=== PATIENT | male | born 1985 | race Caucasian/White ===

== ENCOUNTER 2022-05-18 06:28 | Emergency (ER) | payer SELFPAY ==
--- OUTSIDE RECORDS SUMMARY | 2022-05-18 06:32 | XMS REPORT | Continuity of Care Document ---
:1985 Author Organization [facility] t Address [address] [place] [address] Care Team Providers Name Role Phone Pcp, Patient Does Not Have A Primary Care Physician +[id number] SARINA HOLLIS Attending Clinician Unavailable Sarina Hollis DO Attending Clinician SARINA HOLLIS Admitting Clinician Unavailable Problems Condition Condition Condition Status Onset Resolution Last Treating Co mments Source Name Details Category Date Date Treatment Clinician Date No known No known Disease Unive rs active active ity of problems problems [facility] Allergies, Adverse Reactions, Alerts Allergy Allergy Status Severity Reaction(s) Onset Inactive Treating Comm ents Source Name Type Date Date Clinician Penicill Propensi Active Itching Unive rs in ty to 8-27 ity of adverse 00:00: [place] reaction 00 Medical Branch PENICILL DRUG Active ITCHING Univers IN INGREDI 8-27 ity of 00:00: [place] [facility] Codeine Propensi Active Extra 2006-0 Univers ty to pyramidal 5-18 ity of adverse effects 00:00: [place] reaction 00 Medical s Branch CODEINE DRUG Active EP Effects 0 Unive rs INGREDI -18 ity of 00:00: [place] 00 [facility] Social History Social Habit Start Date Stop Date Quantity Comments Source Exposure to 2022-05-06 2022-05-16 Not sure [facility] SARS-CoV-2 (event) 00:00:00 22:52:00 Medica l Branch Sex Assigned At [birth year] [facility] 00:00:00 00:00:00 Medical Branch Smoking Status Start Date Stop Date Source Tobacco smoking consumption [facility] Medical unknown Branch Medications Ordered Filled Start Stop Current Ordering Indication Dosage Frequency Signature Comments Components Source Medication Medication Date Date Medication? Clinician (SIG) Name Name iopamidol 2021- No [id number] 60mL 60 mL, U nivers (ISOVUE 11-10 Intravenou ity o f 370-500 mL) 17:00: 17:00 s, ONCE, 1 [place] injection 00 :00 dose, On Medica l 60 mL Sat Branch 11/10/21 at 1200, Routine famotidine 2021- No 20mg 20 mg, [facility] ers (PEPCID 11-10 Slow IV ity of (PF)) 16:45: 15:55 Push, [place] injection 00 :00 ONCE, 1 Medical 20 mg dose, On Branch 11/10/21 at 1145, Routine maalox:diph No 15mL 15 mL, Uni vers enhydrAMINE 11-10 Oral, ity of :lidocaine 15:45: 15:55 ONCE, 1 Yah[place] as 2 % viscous 00 :00 dose, On Medi sharon 1:1:1 Sat Branch (FIRST-MOUT 11/10/[address] [facility]) 1045, oral Routine suspension 15 mL CHLORHEXIDI Yes 15 cc po Un krissy NE 5-20 swish and ity of GLUCONATE 00:00: spit bid [place] 0.12 % Medical MUCOUS Branch MEMBR MWSH HYDROCODONE Yes 1-2 tabs Un krissy -ACETAMINOP 5-20 po q4-6h ity of HEN 5-325 00:00: prn pain [place] MG ORAL TAB 00 Medical Branch METRONIDAZO Yes 1 tab po Un krissy LE 250 MG 5-20 q8h ity of ORAL TAB 00:00: [place] 00 Medical Branch CHLORHEXIDI Yes 15 cc po Un krissy NE 5-20 swish and ity of GLUCONATE 00:00: spit bid [place] 0.12 % Medical MUCOUS Branch MEMBR MWSH HYDROCODONE Yes 1-2 tabs Un krissy -ACETAMINOP 5-20 po q4-6h ity of HEN 5-325 00:00: prn [place] MG ORAL TAB 00 Medical Branch METRONIDAZO Yes 1 tab po Un krissy LE 250 MG 5-20 q8h ity of ORAL TAB 00:00: [place] 00 Medical Branch AMOXICILLIN 2005-0 2021- No 1 tab po U nivers 500 MG ORAL 5-20 08-27 q8h ity of CAP 00:00: 00:00 [place] 00 :00 Medical Branch Vital Signs Vital Name Observation Time Observation Value Comments Source Systolic blood 2022-05-17 04:52:00 135 mm[Hg] Univer sity of pressure [facility] Diastolic blood 2022-05-17 04:52:00 92 mm[Hg] Unive rsity of [facility] Heart rate 2022-05-17 04:52:00 98 /min [facility] Body temperature 2022-05-17 04:52:00 36.61 Natasha [facility] Res[facility] rate 2022-05-17 04:52:00 16 /min [facility] Body height 2022-05-17 04:52:00 175.3 cm [facility] Body weight 2022-05-17 04:52:00 81.647 kg [facility] BMI 2022-05-17 04:52:00 26.58 kg/m2 [facility] Oxygen saturation in 2022-05-17 04:52:00 99 /min University of Arterial blood by [facility] Pulse oximetry Branch Systolic blood 2021-11-10 17:41:00 113 mm[Hg] Univer sity of [facility] Diastolic blood 2021-11-10 17:41:00 77 mm[Hg] Unive rsity of [facility] Heart rate 2021-11-10 17:41:00 66 [facility] 2021-11-10 17:41:00 20 /min [facility] Oxygen saturation in 2021-11-10 17:41:00 99 /min University of Arterial blood by [facility] Pulse oximetry Branch Body temperature 2021-11-10 15:38:00 36.83 Natasha [facility] Body height 2021-11-10 15:37:00 175.3 cm [facility] Body weight 2021-11-10 15:37:00 83.915 kg [facility] BMI 2021-11-10 15:37:00 27.32 kg/m2 [facility] Procedures Procedure Date / Time Performed Performing Clinician Sour e CONSENT/REFUSAL FOR 2022-05-17 04:48:42 [facility] ABDOMEN PELVIS W 2021-11-10 16:11:30 [facility] CONTRAST [facility] LIPASE 2021-11-10 15:48:00 Sarina Hollis [facility] COMP. METABOLIC PANEL 2021-11-10 15:48:00 Sarina Hollis [facility] ([id number]) [facility] CBC WITH DIFF 2021-11-10 15:48:00 Sarina Hollis [facility] NOTICE OF PRIVACY 2021-11-10 15:32:49 Doctor Unassigned, No [facility] PRACTICES Name [facility] Encounters Start End Encounter Admission Attending Care Care Encounter Source Date/Time Date/Time Type Type Clinicians Facility Department ID 2022-05-16 2022-05-17 Emergency X JOYCE HOLLIS ERT [id number] Univers 22:54:00 00:03:[address] [facility] 2022-05-16 2022-05-17 Emergency JOYCE Hollis [id number] Univers 22:54:00 00:03:00 Sarina ROSENTHAL [id number] [facility] [id number] [facility] [phone] [place] [address] Branch 2021-11-10 2021-11-10 Emergency X JOYCE HOLLIS ERT [id number] Univers 10:32:00 12:48:00 [facility] 2021-11-10 2021-11-10 Emergency JOYCE Hollis [id number] Univers 10:32:00 12:48:00 Sarina ROSENTHAL [id number] [facility] [id number] [facility] [phone] [facility] 084 Branch Results Test Description Test Time Test Comments Results Result Comments Source COMP. METABOLIC PANEL (48217) 2021-11-10 16:12:12 Test Item Value Reference Range Interpretation Comme nts NA (test code = 6780868195) 137 mmol/L 135-145 K (test code = 4373021577) 5.1 mmol/L 3.5-5 H CL (test code = 0200905458) 105 mmol/L 98-108 CO2 TOTAL (test code = 8328841418) 26 mmol/L 23-31 AGAP (test code = 6962757040) 2-16 BUN (test code = 5064215317) 11 mg/dL 7-23 GLUCOSE (test code = 8058833304) 81 mg/dL 70-110 CREATININE (test code = 0.84 mg/dL 0.6-1.25 1180159985) TOTAL BILI (test code = 0.7 mg/dL 0.1-1.1 3781836901) CALCIUM (test code = 4820081195) 9.1 mg/dL 8.6-10.6 T PROTEIN (test code = 4953926613) 7.2 g/dL 6.3-8.2 ALBUMIN (test code = 5197477369) 4.8 g/dL 3.5-5 ALK PHOS (test code = 1369462457) 93 U/L 34-122 ALTv (test code = 1742-6) 19 U/L 5-50 AST(SGOT) (test code = 4641236065) 30 U/L 13-40 eGFR (test code = 0948967475) mL/min/1.73m2 JACQUELINE (test code = JACQUELINE) Association of Glomerular Filtration Rate (GFR) and Staging of Kidney Disease* + +-------- + ------+| GFR (mL/min/1.73 m2) ?| With Kidney Damage ?| ?Without Kidney Damage+ +-- + +| ?>90 ?| ?Stage one ?| ? Normal ?+ +------- + -------+| ?60-89 ?| ?Stage two ?| ? Decreased GFR ? + +-------- + ------+| ?30-59 ?| ?Stage three ?| ? Stage three ? + +-------- + ------+| ?15-29 ?| ?Stage four ? | ? Stage four ?+ +------- + -------+| ?<15 (or dialysis) ? ?| ?Stage five ? | ? Stage five ?+ +------- + -------+ *Each stage assumes the associated GFR level has been in effect for at least three months. ?Stages 1 to 5, with or without kidney disease, indicate chronic kidney disease. Notes: Determination of stages one and two (with eGFR >59mL/min/1.73 m2) requires estimation of kidney damage for at least three months as defined by structural or functional abnormalities of the kidney, manifested by either:Pathological abnormalities or Markers of kidney damage (including abnormalities in the composition of the blood or urine or abnormalities in imaging tests). Lab Interpretation (test code = Abnormal 61218-6) [facility] Test Item Value Reference Range Interpretation Comments LIPASE (test code = 0487808436) 98 U/L 0-220 Lab Interpretation (test code = Normal 88832-8) General acute hospital WITH HIUA9480-06-06 16:02:37 Test Item Value Reference Range Interpretation Comments WBC (test code = See_Comment [Automated 8008-2) message] The sy stem which generated this result transmitted reference range : 4.20 - 10.70 10*3/?L. The reference range was not used to interpret this result as normal/abnormal . RBC (test code = See_Comment [Automated 164-8) message] The sy stem which generated this result transmitted reference range : 4.26 - 5.52 10*6/?L. The reference range was not used to interpret this result as normal/abnormal . HGB (test code = 16.7 g/dL 12.2-16.4 H 718-7) HCT (test code = 48.6 % 38.4-49.3 4544-3) MCV (test code = 90.2 fL 81.7-95.6 787-2) MCH (test code = 31.0 pg 26.1-32.7 785-6) MCHC (test code = 34.4 g/dL 31.2-35 786-4) RDW-SD (test code = 44.5 fL 38.5-51.6 67844-9) RDW-CV (test code = 13.4 % 12.1-15.4 788-0) PLT (test code = See_Comment [Automated 777-3) message] The sy stem which generated this result transmitted reference range : 150 - 328 10*3/ ?L. The reference r jarod was not used to interpret this result as normal/abnormal . MPV (test code = 10.7 fL 9.8-13 62879-0) NRBC/100 WBC (test See_Comment [Automat ed code = 6381884804) message] The system which generated this result transmitted reference range : 0.0 - 10.0 /100 WBCs. The refer ence range was not u sed to interpret th is result as normal/abnormal . NRBC x10^3 (test code See_Comment [Auto mated = 3689411698) message] The s ystem which generated this result transmitted reference range : 10*3/?L. The reference range was not used to interpret this result as normal/abnormal . GRAN MAT (NEUT) % 53.5 % (test code = 770-8) IMM GRAN % (test code 0.20 % = 4778423995) LYMPH % (test code = 36.7 % 736-9) MONO % (test code = 8.2 % 5905-5) EOS % (test code = 1.0 % 713-8) BASO % (test code = 0.4 % 706-2) GRAN MAT x10^3(ANC) 5.65 10*3/uL 1.99-6.95 (test code = 9899458192) IMM GRAN x10^3 (test 0-0.06 code = 5469603798) LYMPH x10^3 (test code 3.87 10*3/uL 1.09-3.23 H = 731-0) MONO x10^3 (test code 0.86 10*3/uL 0.36-1.02 = 742-7) EOS x10^3 (test code = 0.11 10*3/uL 0.06-0.53 711-2) BASO x10^3 (test code 0.04 10*3/uL 0.01-0.09 = 704-7) Lab Interpretation Abnormal (test code = 68429-2) [facility]"
[2022-05-18] MEDS ORDERED: TETRACAINE HCL 0.5% 4ML OPTH ONE (06:42)
[2022-05-18] MEDS ORDERED: FLUORESCEIN SODIUM 1 MG/WRAP ONE (06:42)
--- NOTE | 2022-05-18 07:38 | ER ---
Nurse's Notes [facility] Name: Baudilio Rich Jr Age: 37 yrs Sex: Male : 1985 Arrival Date: 05/18/2022 Time: 06:31 Bed 5 Private MD: Diagnosis: Foreign body sensation, corneal abrasion Presentation: 05/18 06:40 Chief complaint: Patient states: "I was driving home the other day and something flew vc1 in my eye. I went to the [facility] yesterday and they pulled a piece of metal out but I feel like there is still something there.". Coronavirus screen: Vaccine status: Patient reports receiving the 2nd dose of the covid vaccine. [employer]. Ebola Screen: Patient negative for fever greater than or equal to 101.5 degrees Fahrenheit, and additional compatible Ebola Virus Disease symptoms Patient denies exposure to infectious person. Patient denies travel to an Ebola-affected area in the 21 days before illness onset. No symptoms or risks identified at this time. Risk Assessment: Do you want to hurt yourself or someone else? Patient reports no desire to harm self or others. Onset of symptoms is unknown. 06:40 Method Of Arrival: Ambulatory vc1 06:40 Acuity: IRMA 4 vc1 06:46 Initial Sepsis Screen: Does the patient meet any 2 criteria? No. Patient's initial vc1 sepsis screen is negative. Does the patient have a suspected source of infection? No. Patient's initial sepsis screen is negative. Triage Assessment: 06:45 General: Appears uncomfortable, Behavior is cooperative, appropriate for age. Pain: vc1 Complains of pain in left eye Pain does not radiate. Pain currently is 10 out of 10 on a pain scale. EENT: Eyes are tearing on outer aspect of conjuctiva of left eye and inner aspect of conjunctiva of left eye Reports pain in left eye. Neuro: Level of Consciousness is awake, alert, obeys commands, Oriented to person, place, time, situation, Appropriate for age. Cardiovascular: No deficits noted. Respiratory: Airway is patent Respiratory effort is even, unlabored, Respiratory pattern is regular, symmetrical. GI: No deficits noted. : No deficits noted. No signs and/or symptoms were reported regarding the genitourinary system. Derm: No deficits noted. No signs and/or symptoms reported regarding the dermatologic system. Musculoskeletal: No deficits noted. No signs and/or symptoms reported regarding the musculoskeletal system. Historical: - Allergies: 06:43 Codeine; vc1 06:43 PENICILLINS; vc1 - Home Meds: 06:43 None [Active]; vc1 - PMHx: 06:43 None; vc1 - PSHx: 06:43 None; vc1 - Immunization history:: Client reports receiving the 2nd dose of the Covid vaccine. - Social history:: Smoking status: Patient reports the use of cigarette tobacco products, smokes one pack cigarettes per day. Screenin:44 [facility] ED Fall Risk Assessment (Adult) History of falling in the last 3 months, vc1 including since admission No falls in past 3 months (0 pts) Confusion or Disorientation No (0 pts) Intoxicated or Sedated No (0 pts) Impaired Gait No (0 pts) Mobility Assist Device Used No (0 pt) Altered Elimination No (0 pt) Score/Fall Risk Level 0 - 2 = Low Risk Oriented to surroundings, Maintained a safe environment, Educated pt \\T\\ family on fall prevention, incl call for assistance when getting out of bed. Abuse screen: Denies threats or abuse. Nutritional screening: No deficits noted. Tuberculosis screening: No symptoms or risk factors identified. Assessment: 06:50 General: see triage assessment . as6 06:53 General: Appears in no apparent distress. uncomfortable, Behavior is calm, cooperative. lg3 Pain: Complains of pain in left eye. Neuro: No deficits noted. Doe Agitation-Sedation Scale (RASS): 0 - Alert and Calm Level of Consciousness is awake, alert, obeys commands, Oriented to person, place, time, situation. Cardiovascular: No deficits noted. Denies chest pain, shortness of breath, Capillary refill < 3 seconds Clubbing of nail beds is absent JVD is absent Patient's skin is warm and dry. Respiratory: No deficits noted. Airway is patent Respiratory effort is even, unlabored, Respiratory pattern is regular, symmetrical. GI: No deficits noted. No signs and/or symptoms were reported involving the gastrointestinal system. : No deficits noted. No signs and/or symptoms were reported regarding the genitourinary system. EENT: Eyes are tearing on left eye. Derm: No deficits noted. Skin is intact, is healthy with good turgor, Skin is dry, Skin is normal, Skin temperature is warm. Musculoskeletal: Swelling present in left upper eyelid. 07:26 Reassessment: Dr. Jarvis at bedside. Vital Signs: 06:40 Weight 81.65 kg; Height 5 ft. 9 in. (175.26 cm); vc1 06:41 BP 118 / 82; Pulse 83; Resp 18 S; Temp 98.2(O); Pulse Ox 99% on R/A; as6 06:40 Body Mass Index 26.58 (81.65 kg, 175.26 cm) vc1 ED Course: 06:31 Patient arrived in ED. jj6 06:41 Dmitri Russell, RN is Primary Nurse. as6 06:43 Triage completed. vc1 06:44 Arm band placed on right wrist. vc1 06:46 Patient has correct armband on for positive identification. Bed in low position. vc1 06:53 Door closed. Noise minimized. Warm blanket given. Family accompanied patient. lg3 07:04 Paco Jarvis MD is Attending Physician. sp3 07:41 Assist provider with eye exam of left eye. Performed by Paco Jarvis MD Patient ss tolerated well. Patient did not have IV access during this emergency room visit. Administered Medications: No medications were administered Medication: 06:47 VIS not applicable for this client. vc1 Outcome: 07:38 Discharge ordered by . sp3 07:42 Discharged to home ambulatory. ss 07:42 Condition: good 07:42 Discharge instructions given to patient, family, Instructed on discharge instructions, follow up and referral plans. medication usage, Demonstrated understanding of instructions, follow-up care, medications, Prescriptions given X 1. 07:43 Patient left the ED. Signatures: Huong Cottrell, LLOYD DESAI Cathleen Padilla, LLOYD DESAI lg3 Paco Jarvis MD MD sp3 Imelda Henley jj6 Dmitri Russell RN RN as6 Zari Booth RN RN vc1 Corrections: (The following items were deleted from the chart) 06:42 06:41 BP 118 / 82; Pulse 83bpm; Resp 18bpm; Spontaneous; Pulse Ox 99% RA; Temp 98.4F as6 Oral; as6
--- NOTE | 2022-05-18 07:39 | EDPHYS ---
Physician Documentation [facility] Name: Baudilio Rich Jr Age: 37 yrs Sex: Male : 1985 Arrival Date: 05/18/2022 Time: 06:31 Bed 5 Private MD: ED Physician Paco Jarvis HPI: 05/18 07:31 This 37 yrs old Male presents to ER via Ambulatory with complaints of Foreign Body In sp3 Eye. 07:31 37-year-old male with medical history presents to the ED with chief complaint foreign sp3 body sensation to the left eye. Patient states that he had a "piece of metal" hit his eye 2 days ago for which she was seen in a different emergency department where he had a slit-lamp exam and eye irrigation performed and follow-up with ophthalmology yesterday who also did a full exam and removal of small piece of metal along with corneal bur drill application. That he continued to have foreign body sensation in the different part of his eye under his eyelid starting yesterday evening. That "they did not look under my eyelid". He has a repeat appointment with same supervisor inspection room at 10:30 AM today. He presents to the ED today for pain control and additional consultation. Denies loss of vision, headache, neck pain, fever, double vision, any other neurological symptoms or other aspects of ROS at this time. He is not on any antibiotics or topicals from any of his visits.. Historical: - Allergies: 06:43 Codeine; vc1 06:43 PENICILLINS; vc1 - Home Meds: 06:43 None [Active]; vc1 - PMHx: 06:43 None; vc1 - PSHx: 06:43 None; vc1 - Immunization history:: Client reports receiving the 2nd dose of the Covid vaccine. - Social history:: Smoking status: Patient reports the use of cigarette tobacco products, smokes one pack cigarettes per day. ROS: 07:33 Constitutional: Negative for fever, chills, and weight loss, ENT: Negative for injury, sp3 pain, and discharge, Neck: Negative for injury, pain, and swelling, Cardiovascular: Negative for chest pain, palpitations, and edema, Respiratory: Negative for shortness of breath, cough, wheezing, and pleuritic chest pain. 07:33 Abdomen/GI: Negative for abdominal pain, nausea, vomiting, diarrhea, and constipation, MS/Extremity: Negative for injury and deformity, Skin: Negative for injury, rash, and discoloration, Neuro: Negative for headache, weakness, numbness, tingling, and seizure, Psych: Negative for depression, anxiety, suicide ideation, homicidal ideation, and hallucinations, Allergy/Immunology: Negative for hives, rash, and allergies. 07:33 All other systems are negative. Exam: 07:33 Constitutional: This is a well developed, well nourished patient who is awake, alert, sp3 and in no acute distress. Head/Face: Normocephalic, atraumatic. ENT: Nares patent. No nasal discharge, no septal abnormalities noted. External auditory canals are clear. Oropharynx with no redness, swelling, or masses, exudates, or evidence of obstruction, uvula midline. Mucous membranes moist. Neck: Trachea midline, no thyromegaly or masses palpated, and no cervical lymphadenopathy. Supple, full range of motion without nuchal rigidity, or vertebral point tenderness. No Meningismus. Chest/axilla: Normal chest wall appearance and motion. Nontender with no deformity. No lesions are appreciated. Cardiovascular: Regular rate and rhythm with a normal S1 and S2. No gallops, murmurs, or rubs. Normal PMI, no JVD. No pulse deficits. 07:33 Eyes: Visual acuity is intact. Left eye is injected anterior chamber is clear without hyphema or cloudiness. Pupils equal round reactive to light. Patient declined eye irrigation and only wanted me to look under his eyelid. Eyelid was flipped using Q-tip and Q-tip was also used to sweep area without any visualized foreign body. Pain topical was placed twice during procedure.. Vital Signs: 06:40 Weight 81.65 kg; Height 5 ft. 9 in. (175.26 cm); vc1 06:41 BP 118 / 82; Pulse 83; Resp 18 S; Temp 98.2(O); Pulse Ox 99% on R/A; as6 06:40 Body Mass Index 26.58 (81.65 kg, 175.26 cm) vc1 MDM: 07:30 Patient medically screened. sp3 07:35 Data reviewed: vital signs, nurses notes. ED course: 37-year-old male with foreign body sp3 sensation. At this time I am unable to detect or obtain any foreign body from patient's left eye. Patient declined further examination or irrigation at this time. He has an appointment at 10:30 AM in 3 hours with his supervisor inspection room colleen rivers that we will be better suited for any further intervention. I will start patient on an antibiotic topically given the amount exams and corneal abrasions patient likely has.. Administered Medications: No medications were administered Disposition Summary: 05/18/22 07:38 Discharge Ordered Location: Home sp3 Condition: Stable sp3 Diagnosis - Foreign body sensation, corneal abrasion sp3 Followup: sp3 - With: Private Physician - When: Upon discharge from the Emergency Department - Reason: Re-evaluation by your physician Discharge Instructions: - Discharge Summary Sheet sp3 - Eye Foreign Body sp3 Forms: - Medication Reconciliation Form sp3 - Thank You Letter sp3 - Antibiotic Education sp3 - Prescription Opioid Use sp3 Prescriptions: - Vigamox 0.5 % Ophthalmic Drops - instill 1 drop by OPHTHALMIC route every 8 hours for 7 days; 5 milliliter; sp3 Refills: 0, Product Selection Permitted Signatures: Paco Jarvis MD MD sp3 Zari Booth RN RN vc1
[2022-05-18 07:53] VITALS: BP 118/82; TEMP 98.2; O2SAT 99
== END 2022-05-18 07:43 | disposition home or self-care (01) ==
LOC: ER 06:28
DX: S05.02XA Injury of conjunctiva and corneal abrasion without foreign body, left eye, initial encounter (principal); F17.210 Nicotine dependence, cigarettes, uncomplicated; Z88.0 Allergy status to penicillin; Z88.5 Allergy status to narcotic agent
CPT/HCPCS: 99283

== ENCOUNTER 2024-06-07 08:14 | Emergency (ER) | payer SELFPAY ==
[2024-06-07] MEDS ORDERED: MORPHINE 4 MG/ML SYR ONE (09:12)
[2024-06-07] MEDS ORDERED: ONDANSETRON 4 MG/2 ML VIAL ONE (09:12)
[2024-06-07] MEDS ORDERED: NA CHLORIDE 0.9% 1,000 ML ONE (09:13)
[2024-06-07 09:14] LABS: Absolute Eosinophils 0.1 K/uL (0-0.5); Absolute Lymphocytes (CBC) 3.3 K/uL (0.7-4.9); Absolute Monocytes 0.8 K/uL (0.1-1.3); Absolute Neutrophil 5.5 K/uL (1.8-8.0); Basophils % 0.4 % (0-1.3); Eosinophils % 1.3 % (0-4.4); Hematocrit 49.2 % (39.6-49.0); Hemoglobin 17.1 g/dL (13.6-17.9); Lymphocytes % 33.7 % (15.3-44.8); MCH 31.6 pg (27.0-35.0); MCHC 34.8 g/dL (32.0-36.0); MCV 90.9 fL (80-100); Monocytes % 8.1 % (3.3-12.3); Neutrophils % 56.5 % (41.7-73.7); Nucleated Red Blood Cells % 0.1 % (0-0); Platelets 167 thou/uL (152-406); RBC Red Blood Cell Count 5.41 M/uL (4.33-5.43); Red Cell Distribution Width 14.1 % (12.1-15.2)
--- NOTE | 2024-06-07 09:14 | RAD REPORT ---
EXAMINATION: [place] Protocol CLINICAL INDICATION: Abdominal pain TECHNIQUE: CT abdomen and pelvis was performed, without IV contrast, as per department protocol. Oral contrast not given. Axial, sagittal and coronal reconstructions were obtained. One or more of the following dose reduction techniques were used: Automated exposure control, adjustment of the mA and k V according to the patient size, and iterative reconstruction. Unless otherwise specified, incidental findings do not require dedicated imaging follow-up. COMPARISON: 2022 FINDINGS: The lack of intravenous and oral contrast limits the sensitivity of this exam for evaluation of solid visceral organs, vascular structures, and bowel Multiple, bilateral renal calculi. Mild left hydronephrosis. 5 mm calculus left UPJ. Liver, spleen, pancreas and adrenals grossly normal No evidence of diverticulitis. Normal appendix. Small left inguinal hernia IMPRESSION: 5 mm calculus left UPJ results in mild left hydronephrosis
--- NOTE | 2024-06-07 09:24 | EDPHYS ---
Physician Documentation [facility] Name: Baudilio Rich Jr Age: 39 yrs Sex: Male : 1985 Arrival Date: 06/07/2024 Time: 08:14 Bed 18 Private MD: ED Physician Mingo Lance HPI: 06/07 08:53 This 39 yrs old Male presents to ER via Unassigned with complaints of dr5 Possible Kidney Stone. 08:53 Onset: The symptoms/episode began/occurred acutely. Patient is a 39 year old male with dr5 no past medical history coming in with left flank pain that started last night. Patient states that he has a hx of kidney stones and this feels like another one. The pain is intermittent. Patient also endorses nausea.. Historical: - Allergies: 09:08 PENICILLINS; kc6 09:08 Codeine; kc6 09:08 Amoxicillin; kc6 - PMHx: 09:08 Kidney stone; kc6 - PSHx: 09:08 None; kc6 - Immunization history:: Adult Immunizations up to date. - Infectious Disease History:: Denies. - Social history:: Smoking status: Patient reports the use of cigarette tobacco products, smokes one pack cigarettes per day. ROS: 08:53 Constitutional: as per hpi dr5 Exam: 08:53 Constitutional: This is a well developed, well nourished patient who is awake, alert, dr5 and in no acute distress. Head/Face: Normocephalic, atraumatic. Eyes: Pupils equal round and reactive to light, extra-ocular motions intact. Lids and lashes normal. Conjunctiva and sclera are non-icteric and not injected. Cornea within normal limits. Periorbital areas with no swelling, redness, or edema. Neck: Trachea midline, no thyromegaly or masses palpated, and no cervical lymphadenopathy. Supple, full range of motion without nuchal rigidity, or vertebral point tenderness. No Meningismus. Chest/axilla: Normal chest wall appearance and motion. Nontender with no deformity. No lesions are appreciated. Cardiovascular: Regular rate and rhythm with a normal S1 and S2. Normal PMI, no JVD. No pulse deficits. Respiratory: Lungs have equal breath sounds bilaterally, clear to auscultation. No rales, rhonchi or wheezes noted. No increased work of breathing, no retractions or nasal flaring. Back: No spinal tenderness. No costovertebral tenderness. Full range of motion. Skin: Warm, dry with normal turgor. Normal color with no rashes, no lesions, and no evidence of cellulitis. Neuro: Awake and alert, GCS 15, oriented to person, place, time, and situation. Cranial nerves II-XII grossly intact. Motor strength 5/5 in all extremities. Sensory grossly intact. Cerebellar exam normal. Normal gait. Vital Signs: 08:31 BP 135 / 99; Pulse 85; Resp 18 S; Temp 98.2(O); Pulse Ox 100% on R/A; Weight 88.45 kg kc6 (R); Height 5 ft. 10 in. (R); 08:31 Body Mass Index 27.98 (88.45 kg, 177.8 cm) kc6 MDM: 08:36 Medical Screening Exam initiated dr5 10:06 Differential diagnosis: viral Infection, UTI, Nephrolithiasis, Hydronephrosis. Data dr5 reviewed: vital signs, nurses notes, lab test result(s), radiologic studies, CT scan. I considered the following discharge prescriptions or medication management in the emergency department Medications were administered in the Emergency Department. See MAR. Historians other than the Patient: Spouse/Significant Other: . Care significantly affected by the following chronic conditions: Nephrolithiasis. Care significantly affected by the following Social Determinants of Health: Poor access to healthcare and/or lack of insurance, Poor access to transportation, Problems related to employment. Counseling: I had a detailed discussion with the patient and/or guardian regarding the historical points, exam findings, and any diagnostic results supporting the discharge/admit diagnosis, the presence of at least one elevated blood pressure reading (>120/80) during this emergency department visit, lab results, radiology results, the need for outpatient follow up, for definitive care, a family practitioner, a urologist, to return to the emergency department if symptoms worsen or persist or if there are any questions or concerns that arise at home. ED course: Patient found to have a 5 mm kidney stone. Patient is not in pain at this time. Offered patient pain medication in ER and patient refused due to feeling fine. Patient prescribed pain medication, NSAIDs, as well as Flomax to help with passing of stone. Strainer given to patient and I encouraged him to to void through a strainer to catch stone to take to urologist for examination. Patient verbalized understanding and strict ER precautions given. Patient states he does not need any pain medication as he has passed previous stones and is able to endure it. All questions answered. Patient stable on discharge.. 06/07 08:36 Order name: CBC with Diff; Complete Time: 09:22 [facility] 06/07 08:36 Order name: CMP; Complete Time: : [facility] 06/07 08:36 Order name: Lipase; Complete Time: : [facility] 06/07 08:36 Order name: Urinalysis w/ reflexes; Complete Time: 09: [facility] 06/07 08:36 Order name: CT Stone Protocol; Complete Time: : [facility] 06/07 08:36 Order name: IV Saline Lock; Complete Time: 09: [facility] 06/07 08:36 Order name: Labs collected and sent; Complete Time: 09:04 dr5 Administered Medications: 09:16 Not Given (Patient Refused): ondansetron 4 mg IVP once; over 2 minutes kc6 09:16 Not Given (Patient Refused): morphineor iv 4 mg IVP once over 4 mins kc6 09:16 Drug: NS 0.9% IV 1000 ml IV at 1 bolus Per protocol; to be given as a bolus over 60 kc6 minutes Route: IV; Rate: 1 bolus; Site: right antecubital; 10:02 Follow up: Response: No adverse reaction; IV Status: Completed infusion; IV Intake: kc6 1000ml Disposition Summary: 06/07/24 09:33 Discharge Ordered Notes: Location: Home(06/07/24 09:33) dr5 Condition: Stable(06/07/24 09:33) dr5 Diagnosis - Calculus of kidney dr5 Followup: dr5 - With: Emergency Department - When: As needed - Reason: Worsening of condition Followup: dr5 - With: Private Physician - When: 1 - 2 days - Reason: Recheck today's complaints, Continuance of care, Re-evaluation by your physician Discharge Instructions: - Discharge Summary Sheet dr5 - Kidney Stones dr5 Forms: - Work release form dr5 - Medication Reconciliation Form dr5 - Antibiotic Education dr5 - Patient Portal Instructions dr5 - Leadership Thank You Letter dr5 Addendum: 06/08/2024 11:23 I was immediately available for consultation during this patient's visit. I did not e c2 personally see the patient or discuss the patient with the RUFINA. . Signatures: Dispatcher [employer] Berta Lewis RN RN kc6 Mingo Lance MD MD ec2 Blaine Corrales, LARS-C QUALITY IMPROVEMENT COORDINATOR-Cdr5 Corrections: (The following items were deleted from the chart) 06/07 08: 09:23 [address] dr5 dr5 09: Stable dr5 dr5 09:23 Kidney Stone/ Calculus in bladder dr5 dr5
--- NOTE | 2024-06-07 09:24 | ER ---
Nurse's Notes [facility] Name: Baudilio Rich Jr Age: 39 yrs Sex: Male : 1985 Arrival Date: 06/07/2024 Time: 08:14 Bed 18 Private MD: Diagnosis: Calculus of kidney Presentation: 06/07 08:31 Chief complaint: Patient states: MARCEL flank pain and nausea. [facility] 08:31 Coronavirus screen: At this time, the client does not indicate any symptoms associated [facility] with coronavirus-19. Ebola Screen: No symptoms or risks identified at this time. Initial Sepsis Screen: Does the patient meet any 2 criteria? No. Patient's initial sepsis screen is negative. Does the patient have a suspected source of infection? No. Patient's initial sepsis screen is negative. Risk Assessment: Do you want to hurt yourself or someone else? Patient reports no desire to harm self or others. Onset of symptoms was June 07, 2024. 08:31 Method Of Arrival: Ambulatory [facility] 08:31 Acuity: IRMA 3 kc6 Historical: - Allergies: 09:08 PENICILLINS; kc6 09:08 Codeine; kc6 09:08 Amoxicillin; kc6 - PMHx: 09:08 Kidney stone; kc6 - PSHx: 09:08 None; kc6 - Immunization history:: Adult Immunizations up to date. - Infectious Disease History:: Denies. - Social history:: Smoking status: Patient reports the use of cigarette tobacco products, smokes one pack cigarettes per day. Screenin:02 [facility] ED Fall Risk Assessment (Adult) History of falling in the last 3 months, kc6 including since admission No falls in past 3 months (0 pts) Confusion or Disorientation No (0 pts) Intoxicated or Sedated No (0 pts) Impaired Gait No (0 pts) Mobility Assist Device Used No (0 pt) Altered Elimination No (0 pt) Score/Fall Risk Level 0 - 2 = Low Risk Oriented to surroundings, Maintained a safe environment, Educated pt \T\ family on fall prevention, incl call for assistance when getting out of bed. Abuse screen: Denies threats or abuse. Denies injuries from another. Nutritional screening: No deficits noted. Tuberculosis screening: No symptoms or risk factors identified. Assessment: 10:03 General: Appears in no apparent distress. comfortable, well groomed, well developed, kc6 Behavior is calm, cooperative, appropriate for age. Pain: Complains of pain in left low back and right low back. Neuro: Level of Consciousness is awake, alert, obeys commands, Oriented to person, place, time, situation, Appropriate for age. GI: Abdomen is flat, non-distended, Bowel sounds present X 4 quads. Abd is soft and non tender X 4 quads. Reports nausea, Patient currently denies abdominal pain, diarrhea, vomiting. : No signs and/or symptoms were reported regarding the genitourinary system. Urine is cloudy. Vital Signs: 08:31 BP 135 / 99; Pulse 85; Resp 18 S; Temp 98.2(O); Pulse Ox 100% on R/A; Weight 88.45 kg kc6 (R); Height 5 ft. 10 in. (R); 08:31 Body Mass Index 27.98 (88.45 kg, 177.8 cm) kc6 ED Course: 08:23 Patient arrived in ED. mr 08:23 Mingo Lance MD is Attending Physician. ec2 08:36 Blaine Corrales FNP-C is PHCP. dr5 08:41 Berta Jimenez, LLOYD is Primary Nurse. kc6 08:48 CT Stone Protocol In Process Unspecified. EDMS 09:04 Initial lab(s) drawn, by me, sent to lab. Urine collected: clean catch specimen, clear, zm neetu colored. Inserted saline lock: 20 gauge in right antecubital area, using aseptic technique. Blood collected. Flushed with 10 mL NS. 09:04 CBC with Diff Sent. zm 09:04 CMP Sent. zm 09:04 Lipase Sent. zm 09:04 Urinalysis w/ reflexes Sent. zm 09:08 Triage completed. kc6 09:08 Arm band placed on. kc6 10:03 No provider procedures requiring assistance completed. IV discontinued, intact, kc6 bleeding controlled, No redness/swelling at site. Pressure dressing applied. Patient maintains SpO2 saturation greater than 95% on room air. 10:03 Patient has correct armband on for positive identification. Bed in low position. Call [facility] light in reach. Side rails up X 1. Adult w/ patient. Pulse ox on. NIBP on. Door closed. Noise minimized. Lights dimmed. Pillow given. Verbal reassurance given. Administered Medications: 09:16 Not Given (Patient Refused): ondansetron 4 mg IVP once; over 2 minutes kc6 09:16 Not Given (Patient Refused): morphineor iv 4 mg IVP once over 4 mins kc6 09:16 Drug: NS 0.9% IV 1000 ml IV at 1 bolus Per protocol; to be given as a bolus over 60 kc6 minutes Route: IV; Rate: 1 bolus; Site: right antecubital; 10:02 Follow up: Response: No adverse reaction; IV Status: Completed infusion; IV Intake: kc6 1000ml Medication: 10:04 VIS not applicable for this client. kc6 Intake: 10:02 IV: 1000ml; Total: 1000ml. kc6 Outcome: 09:23 Discharge ordered by . dr5 09:33 Discharge ordered by MD. dr5 10:04 Discharged to home ambulatory, with significant other, kc6 10:04 Condition: good 10:04 Discharge instructions given to patient, significant other, Instructed on discharge instructions, follow up and referral plans. no drinking with medication, no driving heavy equipment, medication usage, Demonstrated understanding of instructions, follow-up care, medications, Prescriptions given X 3, 10:04 Patient left the ED. kc6 Signatures: Dispatcher [employer] EDLindsey Mckeon, Reg Reg mr Mariam Sherman Kaitlyn, RN RN kc6 Mingo Lance MD MD ec2 Blaine Corrales, CHURCH OFFICIAL-C [employer] OFFICIAL-Cdr5
[2024-06-07 09:29] LABS: Albumin 3.9 g/dL (3.4-5.0); Albumin/Globulin Ratio 1.1 (1.1-1.8); Bilirubin Total 0.4 mg/dL (0.2-1.0); Globulin 3.5 g/dL (2.3-3.5); Protein, Total 7.4 g/dL (6.4-8.2)
[2024-06-07 09:29] LABS: Specific Gravity 1.023 (1.005-1.030); Sqamous Epithelial None Seen /HPF (None Seen); Urine Bacteria None Seen /HPF (<20); Urine Bilirubin NEGATIVE (Negative); Urine Blood 3+ (OVER) (Negative); Urine Clarity Turbid (Clear); Urine Color Yellow (Yellow); Urine Culture Reflex Order NOT NEEDED; Urine Glucose NEGATIVE (Negative); Urine Ketones NEGATIVE (Negative); Urine Microscopic Reflex YN ORDER UMIC; Urine Mucus Slight /HPF (None Seen); Urine Nitrite NEGATIVE (Negative); Urine Protein NEGATIVE (Negative); Urine RBC >50 /HPF (None Seen); Urine Urobilinogen Normal (Normal); Urine WBC <5 /HPF (<5); Urine pH 5.5 (5.0-7.0)
[2024-06-07 10:33] VITALS: BP 135/99; TEMP 98.2; O2SAT 100
== END 2024-06-07 10:04 | disposition home or self-care (01) ==
LOC: ER 08:14
DX: N20.0 Calculus of kidney (principal); Z87.442 Personal history of urinary calculi; F17.210 Nicotine dependence, cigarettes, uncomplicated
CPT/HCPCS: 36415; 74176; 76377; 80053; 81001; 83690; 85025; 96360; 99284; J2405; J7030

== ENCOUNTER 2024-06-08 09:46 | Emergency (ER) | payer SELFPAY ==
[2024-06-08] MEDS ORDERED: FENTANYL CITR 100 MCG/2 ML ONE (10:30)
[2024-06-08] MEDS ORDERED: ONDANSETRON 4 MG/2 ML VIAL ONE (10:30)
[2024-06-08] MEDS ORDERED: NA CHLORIDE 0.9% 1,000 ML ONE (10:31)
[2024-06-08 10:32] LABS: Absolute Basophils 0.1 K/uL (0-0.5); Absolute Eosinophils 0.1 K/uL (0-0.5); Absolute Lymphocytes (CBC) 3.1 K/uL (0.7-4.9); Absolute Monocytes 1.1 K/uL (0.1-1.3); Absolute Neutrophil 14.9 K/uL (1.8-8.0); Basophils % 0.4 % (0-1.3); Eosinophils % 0.4 % (0-4.4); Hematocrit 46.9 % (39.6-49.0); Hemoglobin 16.2 g/dL (13.6-17.9); Lymphocytes % 16.2 % (15.3-44.8); MCH 31.4 pg (27.0-35.0); MCHC 34.5 g/dL (32.0-36.0); MPV 9.2 fL (7.6-11.3); Monocytes % 5.6 % (3.3-12.3); Neutrophils % 77.4 % (41.7-73.7); Platelets 161 thou/uL (152-406); RBC Red Blood Cell Count 5.15 M/uL (4.33-5.43)
[2024-06-08] MEDS ORDERED: KETOROLAC 30 MG/ML INJ ONE (10:54)
[2024-06-08] MEDS ORDERED: METOCLOPRAMIDE 10 MG/2mL INJ ONE (11:56)
--- NOTE | 2024-06-08 12:25 | ER ---
Nurse's Notes [facility] Name: Baudilio Rich Jr Age: 39 yrs Sex: Male : 1985 Arrival Date: 06/08/2024 Time: 09:46 Bed 11 Private MD: Diagnosis: Calculus of ureter Presentation: 06/08 10:02 Coronavirus screen: At this time, the client does not indicate any symptoms associated iw with coronavirus-19. Ebola Screen: No symptoms or risks identified at this time. Initial Sepsis Screen: Does the patient meet any 2 criteria? No. Patient's initial sepsis screen is negative. Does the patient have a suspected source of infection? No. Patient's initial sepsis screen is negative. Risk Assessment: Do you want to hurt yourself or someone else? Patient reports no desire to harm self or others. 10:02 Acuity: IRMA 3 iw 10:02 Method Of Arrival: Ambulatory iw Historical: - Allergies: 12:08 Amoxicillin; iw 12:08 Codeine; iw 12:08 PENICILLINS; iw - PMHx: 12:08 Kidney stone; iw Vital Signs: 11:08 BP 112 / 83; Pulse 76; Resp 16; Temp 98.2; Pulse Ox 98% on R/A; Weight 88.45 kg; Height iw 5 ft. 10 in. ; 11:08 Body Mass Index 27.98 (88.45 kg, 177.8 cm) iw ED Course: 09:49 Patient arrived in ED. al6 09:49 Mingo Lance MD is Attending Physician. ec2 10:01 Re Zuluaga, RN is Primary Nurse. iw 10:02 Triage completed. iw 10:13 Missed attempt(s): 20 gauge in right antecubital area. Bleeding controlled, band aid bc6 applied, catheter tip intact. 10:19 BMP Sent. bc6 10:19 CBC with Diff Sent. bc6 10:19 Initial lab(s) drawn, by me, sent to lab. Inserted saline lock: 20 gauge in left bc6 forearm, using aseptic technique. Blood collected. Flushed with 10 mL NS. 12:25 Greyson Cao MD is Referral Physician. ec2 Administered Medications: 10:59 Not Given (Patient Refused): fentanyl (pf)50 mcg IVP once iw 11:00 Drug: NS 0.9% IV 500 ml 500 ml IV at 1 bolus once; to be given as a bolus over 30 iw minutes Volume: 500 ml; Route: IV; Rate: 1 bolus; Site: left antecubital; 11:00 Drug: Ondansetron IVP 4 mg IVP once; over 2 minutes Route: IVP; Site: left antecubital; iw 11:00 Drug: Ketorolac IVP 15 mg IVP once Route: IVP; Site: left antecubital; iw 12:07 Drug: metoCLOPramide IVP 10 mg IVP once; over 1 to 2 minutes Route: IVP; Site: left iw antecubital; Outcome: 12:25 Discharge ordered by MD. santos 12:53 Patient left the ED. iw Signatures: Re Zuluaga RN RN iw Pilar Saxena bc6 Mingo Lance MD MD ec2 Ileana Weems al6
--- NOTE | 2024-06-08 12:25 | EDPHYS ---
Physician Documentation [facility] Name: Baudilio Rich Jr Age: 39 yrs Sex: Male : 1985 Arrival Date: 06/08/2024 Time: 09:46 Bed 11 Private MD: ED Physician Mingo Lance HPI: 06/08 10:04 This 39 yrs old Male presents to ER via Ambulatory with complaints of ec2 Possible Kidney Stone. 10:04 Patient with known diagnosis of kidney stone, arrives today for left-sided flank pain ec2 that is persistent. Was seen yesterday, states that the pain is worsened since. Has been taking ibuprofen with minimal alleviation in symptoms. Reports allergy to codeine.. Historical: - Allergies: 12:08 Amoxicillin; iw 12:08 Codeine; iw 12:08 PENICILLINS; iw - PMHx: 12:08 Kidney stone; iw ROS: 10:05 Constitutional: as per hpi ec2 Exam: 10:05 Constitutional: GEN: NAD Head: atraumatic Eyes: EOMI Ears: External ears are ec2 normal. CV: regular rate LUNGS: no respiratory distress ABD: non-distended, tender in the left abdomen and left flank. SKIN: no evidence of rashes MSK: no evidence of trauma Vital Signs: 11:08 BP 112 / 83; Pulse 76; Resp 16; Temp 98.2; Pulse Ox 98% on R/A; Weight 88.45 kg; Height iw 5 ft. 10 in. ; 11:08 Body Mass Index 27.98 (88.45 kg, 177.8 cm) iw MDM: 09:50 Medical Screening Exam initiated ec2 10:05 Data reviewed: vital signs, nurses notes. ec2 10:45 ED course: Patient declining opiate medications due to previous issues w/ narcotics. ec2 12:24 ED course: on reassessment, pt w/ improvement in s/s. will d/c to home, patient may ec2 benefit from opiate medications however pt declines at this time. 06/08 10:01 Order name: CBC with Diff; Complete Time: 10:54 ec2 06/08 10:01 Order name: BMP; Complete Time: 10:54 ec2 06/08 10:01 Order name: IV; Complete Time: 10:19 ec2 Administered Medications: 10:59 Not Given (Patient Refused): fentanyl (pf)50 mcg IVP once iw 11:00 Drug: NS 0.9% IV 500 ml 500 ml IV at 1 bolus once; to be given as a bolus over 30 iw minutes Volume: 500 ml; Route: IV; Rate: 1 bolus; Site: left antecubital; 11:00 Drug: Ondansetron IVP 4 mg IVP once; over 2 minutes Route: IVP; Site: left antecubital; iw 11:00 Drug: Ketorolac IVP 15 mg IVP once Route: IVP; Site: left antecubital; iw 12:07 Drug: metoCLOPramide IVP 10 mg IVP once; over 1 to 2 minutes Route: IVP; Site: left iw antecubital; Disposition Summary: 06/08/24 12:25 Discharge Ordered Notes: Location: Home ec2 Condition: Stable ec2 Diagnosis - Calculus of ureter ec2 Followup: ec2 - With: Private Physician - When: - Reason: Recheck today's complaints, Re-evaluation by your physician Followup: ec2 - With: Greyson Cao MD - When: - Reason: Recheck today's complaints Discharge Instructions: - Discharge Summary Sheet ec2 - Kidney Stones, [id number] ec2 Forms: - Medication Reconciliation Form ec2 - Antibiotic Education ec2 - Prescription Opioid Use ec2 - Patient Portal Instructions ec2 - Leadership Thank You Letter ec2 Prescriptions: - Zofran 4 mg Oral Tablet - take 1 tablet ORAL route every 12 hours As needed; 20 tablet; Refills: 0, ec2 Product Selection Permitted Signatures: Dispatcher [employer] Re Salinas RN RN Mingo Lance MD MD ec2
[2024-06-08 13:06] VITALS: BP 112/83; TEMP 98.2; O2SAT 98
== END 2024-06-08 12:53 | disposition home or self-care (01) ==
LOC: ER 09:46
DX: N20.1 Calculus of ureter (principal); Z87.442 Personal history of urinary calculi
CPT/HCPCS: 36415; 80048; 85025; 96374; 96375; 99284; J2405; J2765; J3010; J7030

== ENCOUNTER 2024-06-09 07:50 | Emergency (ER) | payer SELFPAY ==
[2024-06-09] MEDS ORDERED: MORPHINE 4 MG/ML SYR ONE (08:08)
[2024-06-09] MEDS ORDERED: KETOROLAC 30 MG/ML INJ ONE (08:08)
[2024-06-09] MEDS ORDERED: NA CHLORIDE 0.9% 1,000 ML ONE ×2 (08:08→10:40)
[2024-06-09] MEDS ORDERED: ONDANSETRON 4 MG/2 ML VIAL ONE (08:08)
--- NOTE | 2024-06-09 08:43 | RAD REPORT ---
EXAMINATION: CT ABDOMEN AND PELVIS WITHOUT CONTRAST CLINICAL INDICATION: PAIN TECHNIQUE: CT abdomen and pelvis was performed, without IV contrast, as per department protocol. Axia l, sagittal and coronal reconstructions were obtained. One or more of the following dose reduction techniques were used: Automated exposure control, adjustment of the mA and kV according to the patien t size, and iterative reconstruction. Unless otherwise specified, incidental findings do not require dedicated imaging follow-up. COMPARISON: 06/07/2024 FINDINGS: The lack of intravenous contrast limits the sensitivity of this exam for evaluation of solid visceral organs, vascular structures, and retroperitoneum. LOWER CHEST: The visualized lung bases are clear. LIVER:Normal in size and contour. No focal lesion. Grossly unremarkable gallbladder. SPLEEN: Normal size. No focal lesion. PANCREAS: No mass, ductal dilation, or wilfrido-pancreatic fluid. ADRENALS: Normal; no mass. KIDNEYS AND URETERS: 5 mm stone is seen distal left ureter resulting in mild left hydronephrosis. Add itional punctate calyceal stones are present in both kidneys. URINARY BLADDER: Normal contour. GASTROINTESTINAL TRACT: No evidence of bowel obstruction, significant free fluid, free air or abscess . APPENDIX: Normal appendix. LYMPH NODES: No lymphadenopathy. MUSCULOSKELETAL: No acute or suspicious osseous abnormality. ADDITIONAL FINDINGS: None. IMPRESSION: 5 mm stone distal left ureter resulting in mild left hydronephrosis. Additional punctate calyceal sto celia are present bilaterally.
[2024-06-09 08:44] LABS: Absolute Basophils 0.1 K/uL (0-0.5); Absolute Lymphocytes (CBC) 1.7 K/uL (0.7-4.9); Absolute Monocytes 1.1 K/uL (0.1-1.3); Absolute Neutrophil 18.6 K/uL (1.8-8.0); Basophils % 0.3 % (0-1.3); Hematocrit 45.4 % (39.6-49.0); Hemoglobin 15.4 g/dL (13.6-17.9); MCV 91.2 fL (80-100); MPV 8.6 fL (7.6-11.3); Monocytes % 5.2 % (3.3-12.3); Neutrophils % 86.5 % (41.7-73.7); Platelets 168 thou/uL (152-406); RBC Red Blood Cell Count 4.98 M/uL (4.33-5.43); Red Cell Distribution Width 13.8 % (12.1-15.2)
[2024-06-09 08:57] LABS: Albumin 3.8 g/dL (3.4-5.0); Albumin/Globulin Ratio 1.2 (1.1-1.8); Anion Gap 9.7 mEq/L (5.0-15.0); Bilirubin Total 0.4 mg/dL (0.2-1.0); Globulin 3.2 g/dL (2.3-3.5); Potassium 3.7 mEq/L (3.5-5.1)
[2024-06-09 09:59] LABS: Blood Morphology Comment NOT SEEN (NOT SEEN); Platelet Estimate ADEQ; White Blood Cell Scan OK (OK)
[2024-06-09 10:13] LABS: Specific Gravity 1.023 (1.005-1.030); Sqamous Epithelial None Seen /HPF (None Seen); Urine Bacteria None Seen /HPF (<20); Urine Bilirubin NEGATIVE (Negative); Urine Blood 3+ (OVER) (Negative); Urine Clarity Turbid (Clear); Urine Color Yellow (Yellow); Urine Culture Reflex Order NOT NEEDED; Urine Glucose NEGATIVE (Negative); Urine Ketones NEGATIVE (Negative); Urine Microscopic Reflex YN ORDER UMIC; Urine Mucus 2+ /HPF (None Seen); Urine Nitrite NEGATIVE (Negative); Urine Protein TRACE (Negative); Urine RBC >50 /HPF (None Seen); Urine Urobilinogen Normal (Normal)
--- NOTE | 2024-06-09 10:20 | EDPHYS ---
Physician Documentation [facility] Name: Baudilio Rich Jr Age: 39 yrs Sex: Male : 1985 Arrival Date: 06/09/2024 Time: 07:50 Bed 17 Private MD: HAVEN Physician Eze Grider HPI: 06/09 08:10 This 39 yrs old Male presents to ER via Ambulatory with complaints of landon Possible Kidney Stone. 08:10 The patient complains of pain in the left low back and left mid back. The pain radiates landon to the left low back and left mid back. Onset: The symptoms/episode began/occurred 3 day(s) ago. Modifying factors: The symptoms are alleviated by nothing. the symptoms are aggravated by nothing. The patient presents with pain that is acute. The symptoms are located in the left low back and left mid back. Associated signs and symptoms: The patient has no apparent associated signs or symptoms. Modifying factors: The patient symptoms are alleviated by nothing, the patient symptoms are aggravated by. Historical: - Allergies: 08:03 Amoxicillin; ll1 08:03 Codeine; ll1 08:03 PENICILLINS; ll1 - PMHx: 08:03 Kidney stone; ll1 - Immunization history:: Adult Immunizations up to date. - Infectious Disease History:: Denies. - Family history:: not pertinent. - Social history:: Smoking status: Patient denies any tobacco usage or history of. ROS: 08:10 Constitutional: Negative for fever, chills, and weight loss, Eyes: Negative for injury, landon pain, redness, and discharge, ENT: Negative for injury, pain, and discharge, Neck: Negative for injury, pain, and swelling, Cardiovascular: Negative for chest pain, palpitations, and edema, Respiratory: Negative for shortness of breath, cough, wheezing, and pleuritic chest pain, Abdomen/GI: Negative for abdominal pain, nausea, vomiting, diarrhea, and constipation, : Negative for injury, bleeding, discharge, and swelling, MS/Extremity: Negative for injury and deformity, Skin: Negative for injury, rash, and discoloration, Neuro: Negative for headache, weakness, numbness, tingling, and seizure, Psych: Negative for depression, anxiety, suicide ideation, homicidal ideation, and hallucinations, Allergy/Immunology: Negative for hives, rash, and allergies, Endocrine: Negative for neck swelling, polydipsia, polyuria, polyphagia, and marked weight changes, Hematologic/Lymphatic: Negative for swollen nodes, abnormal bleeding, and unusual bruising, 08:10 Back: Positive for flank pain, on the left, of the left low back and left mid back, Exam: 08:10 Constitutional: This is a well developed, well nourished patient who is awake, alert, landon and in no acute distress. Head/Face: Normocephalic, atraumatic. Eyes: Pupils equal round and reactive to light, extra-ocular motions intact. Lids and lashes normal. Conjunctiva and sclera are non-icteric and not injected. Cornea within normal limits. Periorbital areas with no swelling, redness, or edema. ENT: Nares patent. No nasal discharge, no septal abnormalities noted. Tympanic membranes are normal and external auditory canals are clear. Oropharynx with no redness, swelling, or masses, exudates, or evidence of obstruction, uvula midline. Mucous membranes moist. Neck: Trachea midline, no thyromegaly or masses palpated, and no cervical lymphadenopathy. Supple, full range of motion without nuchal rigidity, or vertebral point tenderness. No Meningismus. Chest/axilla: Normal chest wall appearance and motion. Nontender with no deformity. No lesions are appreciated. Cardiovascular: Regular rate and rhythm with a normal S1 and S2. No gallops, murmurs, or rubs. Normal PMI, no JVD. No pulse deficits. Respiratory: Lungs have equal breath sounds bilaterally, clear to auscultation and percussion. No rales, rhonchi or wheezes noted. No increased work of breathing, no retractions or nasal flaring. Abdomen/GI: Soft, non-tender, with normal bowel sounds. No distension or tympany. No guarding or rebound. No evidence of tenderness throughout. Male : Normal genitalia with no discharge or lesions. Skin: Warm, dry with normal turgor. Normal color with no rashes, no lesions, and no evidence of cellulitis. MS/ Extremity: Pulses equal, no cyanosis. Neurovascular intact. Full, normal range of motion., bilateral aka Neuro: Awake and alert, GCS 15, oriented to person, place, time, and situation. Cranial nerves II-XII grossly intact. Motor strength 5/5 in all extremities. Sensory grossly intact. Cerebellar exam normal. Normal gait. Psych: Awake, alert, with orientation to person, place and time. Behavior, mood, and affect are within normal limits. 08:10 Back: pain, that is moderate, ROM is normal, normal spinal alignment noted, CVA tenderness, that is mild, is noted on the left, Vital Signs: 08:03 BP 146 / 99; Pulse 60; Resp 24; Temp 97.6; Pulse Ox 99% on R/A; Pain 10/10; ll1 08:40 BP 144 / 84; Pulse 81; Resp 18; Pulse Ox 98% on R/A; Pain 9/10; ld1 10:00 BP 135 / 89; Pulse 87; Resp 18; Pulse Ox 99% on R/A; ld1 10:19 BP 116 / 81; Pulse 75; Resp 18; Pulse Ox 98% on R/A; ld1 08:03 Pain Scale: Adult ll1 08:40 Pain Scale: Adult ld1 MDM: 07:54 Medical Screening Exam initiated landon 08:14 Differential diagnosis: nephrolithiasis, pyelonephritis, UTI. Data reviewed: [facility] signs, nurses notes, lab test result(s), radiologic studies, CT scan. Consideration of Admission/Observation Escalation of care including admission/observation considered. I considered the following discharge prescriptions or medication management in the emergency department Medications were administered in the Emergency Department. See MAR. Independent interpretation of the following test(s) in the Emergency Department CT Scan: My interpretation is CT STONE. Care significantly affected by the following chronic conditions: KIDNEY STONE, UPJ 5 MM. 06/09 07:55 Order name: CBC with Diff; Complete Time: 10:17 [facility] 06/09 07:55 Order name: CMP; Complete Time: 09:32 [facility] 06/09 07:55 Order name: Lipase; Complete Time: 09:32 [facility] 06/09 07:55 Order name: Urinalysis w/ reflexes; Complete Time: 10:17 [facility] 06/09 09:59 Order name: CBC Smear Scan; Complete Time: 10:17 [facility] 06/09 07:55 Order name: CT Stone Protocol; Complete Time: 08:52 [facility] 06/09 07:55 Order name: IV Saline Lock; Complete Time: 08:42 [facility] 06/09 07:55 Order name: Labs collected and sent; Complete Time: 08:42 [facility] 06/09 08:56 Order name: Kavon. Order: GET UA; Complete Time: 10:00 landon 06/09 10:19 Order name: Vital Signs; Complete Time: 10:19 landon Administered Medications: 08:41 Drug: NS 0.9% IV 1000 ml IV at 1000 ml once; to be given as a bolus over 60 minutes ld1 Route: IV; Rate: 1000 ml; Site: right antecubital; 08:41 Drug: Rocephin IV 1 grams IV at per protocol once; Given slow IV push per pharmacy ld1 instructions Route: IV; Rate: per protocol; Site: right antecubital; 08:42 Drug: Ondansetron IVP 4 mg IVP once; over 2 minutes Route: IVP; Site: right antecubital;ld1 08:42 Drug: morphine IVP or IV 4 mg IVP once over 4 mins Route: IVP; Infused Over: 4 mins; ld1 Site: right antecubital; 08:42 Drug: NS 0.9% IV 1000 ml IV at 1 bolus Per protocol; to be given as a bolus over 60 ld1 minutes Route: IV; Rate: 1 bolus; Site: right antecubital; 08:42 Drug: Ketorolac IVP 30 mg IVP once Route: IVP; Site: right antecubital; ld1 10:51 Drug: Ciprofloxacin PO 500 mg PO once Route: PO; ld1 Disposition Summary: 06/09/24 10:20 Discharge Ordered Notes: Location: Home landon Problem: new landon Symptoms: have improved landon Condition: Stable landon Diagnosis - Hydronephrosis with renal and ureteral calculous obstruction landon - Elevated white blood cell count landon Followup: landon - With: Private Physician - When: 2 - 3 days - Reason: Recheck today's complaints, Continuance of care, Re-evaluation by your physician Followup: landon - With: Greyson Cao MD - When: 2 - 3 days - Reason: Recheck today's complaints, Re-evaluation by your physician Discharge Instructions: - Discharge Summary Sheet landon - Kidney Stones landon - Kidney Stones, [id number] landon - Hydronephrosis landon - Dietary Guidelines to Help Prevent Kidney Stones landon Forms: - Medication Reconciliation Form landon - Antibiotic Education landon - Prescription Opioid Use landon - Patient Portal Instructions landon - Leadership Thank You Letter landon Prescriptions: - ondansetron 4 mg Oral Tablet,disintegrating - take 1 tablet ORAL route every 6-8 hours for 5 days PRN NAUSEA; 20 tablet; landon Refills: 0, Product Selection Permitted - Flomax 0.4 mg Oral capsule - take 1 capsule ORAL route every 24 hours; 30 capsule; Refills: 0, Product landon Selection Permitted - ketorolac 10 mg Oral tablet - take 1 tablet ORAL route every 6 hours for 3 days while awake; do not exceed 4 landon doses per day; 12 tablet; Refills: 0, Product Selection Permitted - Cipro 500 mg Oral Tablet - take 1 tablet ORAL route every 12 hours for 7 days; 14 tablet; Refills: 0, [facility] Product Selection Permitted - Tramadol 50 mg Oral tablet - take 1 tablet ORAL route every 6 hours as needed; 20 tablet; Refills: 0, [facility] Product Selection Permitted Signatures: Dispatcher [employer] Eze Vazquez, Adrienne Titus MD, cha, RN RN ll1 Dionne Payan RN RN ld1
--- NOTE | 2024-06-09 10:20 | ER ---
Nurse's Notes [facility] Name: Baudilio Rich Jr Age: 39 yrs Sex: Male : 1985 Arrival Date: 06/09/2024 Time: 07:50 Bed 17 Private MD: Diagnosis: Hydronephrosis with renal and ureteral calculous obstruction;Elevated white blood cell count Presentation: 06/09 08:03 Chief complaint: Patient states: L flank pain with N/V continues, 3rd visit in the past ll1 week. Coronavirus screen: Client denies travel out of the [place] in the last 14 days. At this time, the client does not indicate any symptoms associated with coronavirus-19. Ebola Screen: Patient denies travel to an Ebola-affected area in the 21 days before illness onset. Initial Sepsis Screen: Does the patient meet any 2 criteria? No. Patient's initial sepsis screen is negative. Does the patient have a suspected source of infection? No. Patient's initial sepsis screen is negative. Risk Assessment: Do you want to hurt yourself or someone else? Patient reports no desire to harm self or others. Onset of symptoms was June 01, 2024. 08:03 Method Of Arrival: Ambulatory ll1 08:03 Acuity: IRMA 3 ll1 Triage Assessment: 08:04 General: Appears distressed, uncomfortable, Behavior is calm, cooperative, appropriate ll1 for age. Pain: Complains of pain in L flank. GI: Reports nausea, vomiting. : Reports pain in left flank(s). Historical: - Allergies: 08:03 Amoxicillin; ll1 08:03 Codeine; ll1 08:03 PENICILLINS; ll1 - PMHx: 08:03 Kidney stone; ll1 - Immunization history:: Adult Immunizations up to date. - Infectious Disease History:: Denies. - Family history:: not pertinent. - Social history:: Smoking status: Patient denies any tobacco usage or history of. Screenin:40 [facility] ED Fall Risk Assessment (Adult) History of falling in the last 3 months, ld1 including since admission No falls in past 3 months (0 pts) Confusion or Disorientation No (0 pts) Intoxicated or Sedated No (0 pts) Impaired Gait No (0 pts) Mobility Assist Device Used No (0 pt) Altered Elimination No (0 pt) Score/Fall Risk Level 0 - 2 = Low Risk Oriented to surroundings, Hourly rounding (assess needs \T\ fall precautionary measures) done. Abuse screen: Denies threats or abuse. Denies injuries from another. Nutritional screening: No deficits noted. Tuberculosis screening: No symptoms or risk factors identified. Assessment: 08:40 General: Appears in no apparent distress. comfortable, Behavior is calm, cooperative, ld1 appropriate for age. Pain: Complains of pain in left mid back and left low back Pain does not radiate. Pain currently is 8 out of 10 on a pain scale. Quality of pain is described as throbbing, Pain began suddenly, Is continuous. Neuro: Level of Consciousness is awake, alert, obeys commands, Oriented to person, place, time, situation. Cardiovascular: Capillary refill < 3 seconds Patient's skin is warm and dry. Respiratory: Airway is patent Respiratory effort is even, unlabored. GI: Abdomen is flat, non-distended, Bowel sounds present X 4 quads. Abd is soft Abd is non tender. : Reports pain in left flank(s). EENT: No signs and/or symptoms were reported regarding the EENT system. Derm: No signs and/or symptoms reported regarding the dermatologic system. Musculoskeletal: No signs and/or symptoms reported regarding the musculoskeletal system. Vital Signs: 08:03 BP 146 / 99; Pulse 60; Resp 24; Temp 97.6; Pulse Ox 99% on R/A; Pain 10/10; ll1 08:40 BP 144 / 84; Pulse 81; Resp 18; Pulse Ox 98% on R/A; Pain 9/10; ld1 10:00 BP 135 / 89; Pulse 87; Resp 18; Pulse Ox 99% on R/A; ld1 10:19 BP 116 / 81; Pulse 75; Resp 18; Pulse Ox 98% on R/A; ld1 08:03 Pain Scale: Adult ll1 08:40 Pain Scale: Adult ld1 ED Course: 07:52 Patient arrived in ED. im 07:54 Eze Grider MD is Attending Physician. landon 08:03 Arm band placed on Patient placed in an exam room, on a stretcher. ll1 08:04 Triage completed. ll1 08:19 CT Stone Protocol In Process Unspecified. EDMS 08:36 Dionne Payan, LLOYD is Primary Nurse. ld1 08:36 Inserted saline lock: 20 gauge in right antecubital area, using aseptic technique. ld1 Blood collected. Flushed with 10 mL NS. 08:40 Patient has correct armband on for positive identification. Placed in gown. Bed in low ld1 position. Call light in reach. Side rails up X2. Pulse ox on. NIBP on. Door closed. Noise minimized. Warm blanket given. 08:40 No provider procedures requiring assistance completed. ld1 10:19 Greyson Cao MD is Referral Physician. landon 11:38 IV discontinued, intact, bleeding controlled, No redness/swelling at site. ld1 Administered Medications: 08:41 Drug: NS 0.9% IV 1000 ml IV at 1000 ml once; to be given as a bolus over 60 minutes ld1 Route: IV; Rate: 1000 ml; Site: right antecubital; 08:41 Drug: Rocephin IV 1 grams IV at per protocol once; Given slow IV push per pharmacy ld1 instructions Route: IV; Rate: per protocol; Site: right antecubital; 08:42 Drug: Ondansetron IVP 4 mg IVP once; over 2 minutes Route: IVP; Site: right antecubital;ld1 08:42 Drug: morphine IVP or IV 4 mg IVP once over 4 mins Route: IVP; Infused Over: 4 mins; ld1 Site: right antecubital; 08:42 Drug: NS 0.9% IV 1000 ml IV at 1 bolus Per protocol; to be given as a bolus over 60 ld1 minutes Route: IV; Rate: 1 bolus; Site: right antecubital; 08:42 Drug: Ketorolac IVP 30 mg IVP once Route: IVP; Site: right antecubital; ld1 10:51 Drug: Ciprofloxacin PO 500 mg PO once Route: PO; ld1 Medication: 08:40 VIS not applicable for this client. ld1 Outcome: 10:20 Discharge ordered by . landon 11:38 Discharged to home ambulatory, ld1 11:38 Condition: stable 11:38 Discharge instructions given to patient, Instructed on discharge instructions, follow up and referral plans. Demonstrated understanding of instructions, follow-up care, medications, Prescriptions given X 5 11:38 Patient left the ED. ld1 Signatures: Dispatcher [employer] EDEze Bustos MD MD cha Lewis, Lynsay RN RN ll1 Dionne Payan RN RN ld1 Casie Hammond
[2024-06-09] MEDS ORDERED: CIPROFLOXACIN HCL 500 MG TAB ONE (10:41)
[2024-06-09 11:57] VITALS: TEMP 97.6
[2024-06-09 12:05] VITALS: BP 116/81; O2SAT 98
== END 2024-06-09 11:38 | disposition home or self-care (01) ==
LOC: ER 07:50
DX: N13.2 Hydronephrosis with renal and ureteral calculous obstruction (principal); D72.829 Elevated white blood cell count, unspecified; Z88.0 Allergy status to penicillin; Z88.5 Allergy status to narcotic agent
CPT/HCPCS: 36415; 74176; 76377; 80053; 81001; 83690; 85025; 96374; 96375; 99284; J2405; J7030

== ENCOUNTER 2024-12-28 | Emergency (ER) | payer SELFPAY ==
--- OUTSIDE RECORDS SUMMARY | 2024-12-28 00:10 | XMS REPORT | Continuity of Care Document ---
Author Name Unknown Address [address] [place] [address] [facility] [place] Address [address] [place] [address] Care Team Providers Care Baker Helper Name Role Phone PCP, PATIENT DOES NOT HAVE A Primary Care Physic van SARINA Will Attending Clinician UnavailSARINA Parker Attending Clinician UnavailSARINA Parker Admitting Clinician Unavailab le Problems Condition Name Condition Details Condition Category Status Onset Date Resolution Date Last Treatment Date Treating Clinician Comments Source No known active problems No known active problems Disease [facility] Allergies, Adverse Reactions, Alerts Allergy Name Allergy Type Status Severity Reaction(s) Onset Date Inactive Date Treating Clinician Comments Source Penicill in Propensi ty to adverse reaction s Active Itching 11-10 00:00: 00 [facility] PENICILL IN DRUG INGREDI Active ITCHING 11-10 00:00: 00 [facility] CODEINE DRUG INGREDI Active EP Effects 08-01 00:00: 00 [facility] Codeine Propensi ty to adverse reaction s Active Extra pyramidal effects 08-01 00:00: 00 [facility] Social History Social Habit Start Date Stop Date Quantity Comments Source Sexual orientation [facility] Exposure to SARS-CoV-2 (event) 2022-05-06 00:00:00 2022-05-16 22:52:00 Not sure [facility] Sex assigned at 1985 00:00:00 1985 00:00:00 [facility] Smoking Status Start Date Stop Date Source Tobacco smoking consumption unknown [facility] Medications Ordered Medication Name Filled Medication Name Start Date Stop Date Current Medication? Ordering Clinician Indication Dosage Frequency Signature (SIG) Comments Components Source NaCl 0.9% (NS) bolus infusion 1,000 mL 09-11 21:00: 00 09-11 21:27 :00 No 1000mL at 999 mL/hr, 1,000 mL, IV Infusion, ONCE, 1 dose, On 09/11/24 at 1600, HELADIO [facility] iopamidol (ISOVUE 370-500 mL) injection 60 mL 11-10 17:00: 00 11-10 17:00 :00 No [id number] 60mL 60 mL, Intravenou s, ONCE, 1 dose, On 11/10/21 at 1200, Routine [facility] famotidine (PEPCID (PF)) injection 20 mg 11-10 16:45: 00 11-10 15:55 :00 No 20mg 20 mg, Slow IV Push, ONCE, 1 dose, On 11/10/21 at 1145, Routine [facility] maalox:diph enhydrAMINE :lidocaine 2 % viscous 1:1:1 (FIRST-MOUT HWASH BLM) oral suspension 15 mL 11-10 15:45: 00 11-10 15:55 :00 No 15mL 15 mL, Oral, ONCE, 1 dose, On 11/10/21 at 1045, Routine [facility] CHLORHEXIDI NE GLUCONATE 0.12 % MUCOUS [facility]BR [facility] 08-03 00:00: 00 Yes 15 cc po swish and spit bid [facility] CHLORHEXIDI NE GLUCONATE 0.12 % MUCOUS [facility]BR [facility] 08-03 00:00: 00 Yes 15 cc po swish and spit bid [facility] HYDROCODONE -ACETAMINOP HEN 5-325 MG ORAL TAB 08-03 00:00: 00 Yes 1-2 tabs po q4-6h prn pain [facility] METRONIDAZO LE 250 MG ORAL TAB 08-03 00:00: 00 Yes 1 tab po q8h [facility] AMOXICILLIN 500 MG ORAL CAP 08-03 00:00: 00 11-10 00:00 :00 No 1 tab po q8h [facility] Vital Signs Vital Name Observation Time Observation Value Comments S ource Systolic blood pressure 2024-09-11 21:22:00 128 mm[Hg] [facility] Diastolic blood pressure 2024-09-11 21:22:00 82 mm[Hg] [facility] Heart rate 2024-09-11 21:22:00 78 /min [facility] Body temperature 2024-09-11 21:22:00 36.61 Natasha [facility] Respiratory rate 2024-09-11 21:22:00 18 /min [facility] Oxygen saturation in Arterial blood by Pulse oximetry 2024-09-11 21:22:00 100 /min [facility] Body height 2024-09-11 19:44:00 177.8 cm [facility] Body weight 2024-09-11 19:44:00 86.183 kg [facility] BMI 2024-09-11 19:44:00 27.26 kg/m2 [facility] Systolic blood pressure 2022-05-17 04:52:00 135 mm[Hg] [facility] Diastolic blood pressure 2022-05-17 04:52:00 92 mm[Hg] [facility] Heart rate 2022-05-17 04:52:00 98 /min [facility] Body temperature 2022-05-17 04:52:00 36.61 Natasha [facility] Respiratory rate 2022-05-17 04:52:00 16 /min [facility] Body height 2022-05-17 04:52:00 175.3 cm [facility] Body weight 2022-05-17 04:52:00 81.647 kg [facility] BMI 2022-05-17 04:52:00 26.58 kg/m2 [facility] Oxygen saturation in Arterial blood by Pulse oximetry 2022-05-17 04:52:00 99 /min [facility] Systolic blood pressure 2021-11-10 17:41:00 113 mm[Hg] [facility] Diastolic blood pressure 2021-11-10 17:41:00 77 mm[Hg] [facility] Heart rate 2021-11-10 17:41:00 66 /min [facility] Respiratory rate 2021-11-10 17:41:00 20 /min [facility] Oxygen saturation in Arterial blood by Pulse oximetry 2021-11-10 17:41:00 99 /min [facility] Body temperature 2021-11-10 15:38:00 36.83 Natasha [facility] Body height 2021-11-10 15:37:00 175.3 cm [facility] Body weight 2021-11-10 15:37:00 83.915 kg [facility] BMI 2021-11-10 15:37:00 27.32 kg/m2 [facility] Procedures Procedure Date / Time Performed Performing Clinicia n Source CREATINE KINASE 2024-09-11 20:19:00 Sarina Hollis [facility] MAGNESIUM 2024-09-11 20:19:00 Sarina Hollis [facility] COMP. METABOLIC PANEL (24166) 2024-09-11 20:19:00 Sarina Hollis [facility] CBC WITH DIFF 2024-09-11 20:19:00 Sarina Hollis [facility] POCUS DVT US 2024-09-11 19:52:25 Sarina Hollis [facility] CONSENT/REFUSAL FOR DIAGNOSIS AND TREATMENT 2022-05-17 04:48:42 Doctor Unassigned, [place] [facility] CT ABDOMEN PELVIS W CONTRAST 2021-11-10 16:11:30 Sarina Hollis [facility] LIPASE 2021-11-10 15:48:[address] [facility] MET[facility]OLIC PANEL (03251) 2021-11-10 15:48:00 Sarina Hollis [facility] CBC WITH DIFF 2021-11-10 15:48:[address] [facility] OF PRIVACY PRACTICES 2021-11-10 15:32:49 Doctor Unassigned, [place] [facility] Encounters Start Date/Time End Date/Time Encounter Type Admission Type Attending [facility] Care Department Encounter ID Source 2024-09-11 14:46:00 2024-09-11 16:29:00 Emergency X SARINA HOLLIS [facility] ERT [id number] [facility] 2022-05-16 22:54:00 2022-05-17 00:03:00 Emergency X SARINA HOLLIS [facility] ERT [id number] [facility] 2022-05-16 22:54:00 2022-05-17 00:03:00 Emergency Sarina Hollis [facility] [id number] [facility] 2021-11-10 10:32:00 2021-11-10 12:48:00 Emergency X SARINA HOLLIS [facility] ERT [id number] [facility] 2021-11-10 10:32:00 2021-11-10 12:48:00 Emergency Sarina Hollis [facility] [id number] [facility] Results Test Description Test Time Test Comments Results Result Co mments Source [facility] 20:46:00* Test Item Value Reference Range Interpretation Comme nts MAGNESIUM (test code = 0736746545) 1.8 mg/dL 1.7-2.4 Lab Interpretation (test cod e = 53357-9) Normal [facility] (47496)2024-09-11 20:45:39* Test Item Value Reference Range Interpretation Comme nts NA (test code = 8829461109) 137 mmol/L 135-145 K (test code = 2331980241) 4.5 mmol/L 3.5-5.0 CL (test code = 6647116651) 107 mmol/L 98-108 CO2 TOTAL (test code = 3233826113) 23 mmol/L 23-31 AGAP (test code = 4724493120) 7 2-16 BUN (test code = 9816130693) 14 mg/dL 7-23 GLUCOSE (test code = 4279877960) 79 mg/dL 70-110 CREATININE (test code = 2160-0) 0.92 mg/dL 0.60-1.25 TOTAL BILI (test code = 0836817408) 0.6 mg/dL 0.1-1.1 CALCIUM (test code = 4620175079) 9.3 mg/dL 8.6-10.6 T PROTEIN (test code = 3841079373) 7.1 g/dL 6.3-8.2 ALBUMIN (test code = 3101860702) 4.2 g/dL 3.5-5.0 ALK PHOS (test code = 1817994116) 86 U/L 34-122 ALTv (test code = 1742-6) 21 U/L 5-50 AST(SGOT) (test code = 3457443026) 27 U/L 13-40 eGFR (test code = 03310-4) 108.5 mL/min/1.73m2 CKD-EPI eGFR (20 21). Assuming creatinine has been stable day-to-day for at least three months, the eGFR indicates Category G1 (>= 90 mL/min/1.73 m2) [facility] WITH [id number] 20:34:01* Test Item Value Reference Range Interpretation Comme nts WBC (test code = 6690-2) 10.27 4.20-10.70 RBC (test code = 789-8) 4.91 4.26-5.52 HGB (test code = 718-7) 15.6 g/dL 12.2-16.4 HCT (test code = 4544-3) 44.9 % 38.4-49.3 MCV (test code = 787-2) 91.4 fL 81.7-95.6 MCH (test code = 785-6) 31.8 pg 26.1-32.7 MCHC (test code = 786-4) 34.7 g/dL 31.2-35.0 RDW-SD (test code = 10586-4) 45.7 fL 38.5-51.6 RDW-CV (test code = 788-0) 13.5 % 12.1-15.4 PLT (test code = 777-3) 156 150-328 MPV (test code = 67892-4) 10.5 fL 9.8-13.0 NRBC/100 WBC (test code = 0961073416) 0 0.0-10.0 NRBC x10^3 (test code = 5957794452) See_Comment [Automated messa ge] The system which generated this result transmitted reference range: 10*3/?L. The reference range was not used to interpret this result as normal/abnormal. GRAN MAT (NEUT) % (test code = 770-8) 52.6 % IMM GRAN % (test code = 5794099044) 0.2 % LYMPH % (test code = 736-9) 38.2 % MONO % (test code = 5905-5) 7.8 % EOS % (test code = 713-8) 0.9 % BASO % (test code = 706-2) 0.3 % GRAN MAT x10^3(ANC) (test code = 0383004451) 5.41 10*3/uL 1.99-6.95 IMM GRAN x10^3 (test code = 6730709703) 0.00-0.06 LYMPH x10^3 (test code = 731-0) 3.92 10*3/uL 1.09-3.23 H MONO x10^3 (test code = 742-7) 0.8 10*3/uL 0.36-1.02 EOS x10^3 (test code = 711-2) 0.09 10*3/uL 0.06-0.53 BASO x10^3 (test code = 704-7) 0.03 10*3/uL 0.01-0.09 Lab Interpretation (test code = 74513-3) [facility]normal [facility] [id number] 20:06:25Study Date and Time: 2024-09-11 14:52Study Author: Sarina Hollis DVT - Lower Extremity Venous:Focused compression ultrasonography of the lower extremity was performed.: ? ?Laterality: LeftIndication(s) for exam: ? ?Select all that apply:: LE Pain ? ?Other indications: N/AViews - R LE: ? ?Right Saphenofemoral Junction: N/A ? ?Right Common Femoral Vein: N/A ? ?Right Femoral Vein: N/A ? ?Right Deep Femoral: N/A ? ?Right Popliteal Vein: N/A ? ?Right Popliteal Trifurcation: N/A ? ?Right CFV Spectral Doppler Performed: N/A ? ?Other Right LE views: N/AViews - Left LE: ? ?Left Saphenofemoral Junction: Adequate ? ?Left Common Femoral Vein: Adequate ? ?Left Femoral Vein: Adequate ? ?Left Deep Femora l: N/A ? ?Left Popliteal Vein: Adequate ? ?Left Popliteal Trifurcation: N/A ? ?Left CFV Spectral Doppler Performed: N/A ? ?Other left LE views: N/AFindings - Right LE: ? ?Right Saphenofemoral Junction: N/A ? ?Right Common Femoral Vein: N/A ? ?Right Femoral Vein: N/A ? ?Right Deep Femoral: N/A ? ?Right Popliteal Vein: N/A ? ?Right Popliteal Trifurcation: N/A ? ?Right CFV Spectral Doppler: N/A ? ?Other right LE findings: N/AFindings - Left LE: ? ?Left Saphenofemoral Junction: Compressible ? ?LeftCommon Femoral Vein: Compressible ? ?Left Femoral Vein: Compressible ? ?Left Deep Femoral: N/A ? ?Left Popliteal Vein: Compressible ? ?Left Popliteal Trifurcation: N/A ? ?Left CFV Spectral Doppler: N/A ? ?Other left LE findings: N/AInterpretation: ? ?Select all that apply: No sonographic evidence of deep vein thrombosis ? ?If present, location(s) of DVT: N/A ? ?If negative:: N/AConfirmatory Study: ? ?What confirmatory study was performed during ED patient evaluation?: No additional imaging ordered ? ?Confirmatory Study/Comments: N/A Signed by Sarina Hollis on 2024-09-11 15:06 [facility]. METABOLIC PANEL (42464)2021-11-10 16:12:12* Test Item Value Reference Range Interpretation Comme nts NA (test code = 7407806762) 137 mmol/L 135-145 K (test code = 2943165901) 5.1 mmol/L 3.5-5 H CL (test code = 1325673038) 105 mmol/L 98-108 CO2 TOTAL (test code = 1408389554) 26 mmol/L 23-31 AGAP (test code = 1219848640) 2-16 BUN (test code = 2072053598) 11 mg/dL 7-23 GLUCOSE (test code = 7226497858) 81 mg/dL 70-110 CREATININE (test code = 1197117168) 0.84 mg/dL 0.6-1.25 TOTAL BILI (test code = 7155357151) 0.7 mg/dL 0.1-1.1 CALCIUM (test code = 5654356487) 9.1 mg/dL 8.6-10.6 T PROTEIN (test code = 2135861051) 7.2 g/dL 6.3-8.2 ALBUMIN (test code = 2314037605) 4.8 g/dL 3.5-5 ALK PHOS (test code = 5049368682) 93 U/L 34-122 ALTv (test code = 1742-6) 19 U/L 5-50 AST(SGOT) (test code = 6705334839) 30 U/L 13-40 eGFR (test code = 3129010625) mL/min/1.73m2 JACQUELINE (test code = JACQUELINE) Association of Glomerular Filtration Rate (GFR) and Staging of Kidney Disease* + --+ --+ ------+| GFR (mL/min/1.73 m2) ?| With Kidney Damage ?| ?Without Kidney Damage+ --------+ --------+ +| ?>90 ?| ?Stage one ?| ? Normal ?+ ---+ ---+ -------+| ?60-89 ?| ?Stage two ?| ? Decreased GFR ? + --+ --+ ------+| ?30-59 ?| ?Stage three ?| ? Stage three ? + --+ --+ ------+| ?15-29 ?| ?Stage four ? | ? Stage four ?+ ---+ ---+ -------+| ?<15 (or dialysis) ? ?| ?Stage five ? | ? Stage five ?+ ---+ ---+ -------+ *Each stage assumes the associated GFR [...] imaging tests). Lab Interpretation (test code = 99104-5) [facility]normal [facility] 16:11:17* Test Item Value Reference Range Interpretation Comme nts LIPASE (test code = 0478301629) 98 U/L 0-220 Lab Interpretation (test cod e = 01656-8) Normal [facility] WITH [id number] 16:02:37* Test Item Value Reference Range Interpretation Comme nts WBC (test code = 6690-2) See_Comment [[employer]] The system which generated this result transmitted reference range: 4.20 - 10.70 10*3/?L. The reference range was not used to interpret this result as normal/abnormal. RBC (test code = 789-8) See_Comment [[employer]] The system which generated this result transmitted reference range: 4.26 - 5.52 10*6/?L. The reference range was not used to interpret this result as normal/abnormal. HGB (test code = 718-7) 16.7 g/dL 12.2-16.4 H HCT (test code = 4544-3) 48.6 % 38.4-49.3 MCV (test code = 787-2) 90.2 fL 81.7-95.6 MCH (test code = 785-6) 31.0 pg 26.1-32.7 MCHC (test code = 786-4) 34.4 g/dL 31.2-35 RDW-SD (test code = 57977-2) 44.5 fL 38.5-51.6 RDW-CV (test code = 788-0) 13.4 % 12.1-15.4 PLT (test code = 777-3) See_Comment [Automated messa ge] The system which generated this result transmitted reference range: 150 - 328 10*3/?L. The reference range was not used to interpret this result as normal/abnormal. MPV (test code = 37142-0) 10.7 fL 9.8-13 NRBC/100 WBC (test code = 8758818194) See_Comment [Automated [employer] ssage] The system which generated this result transmitted reference range: 0.0 - 10.0 /100 WBCs. The reference range was not used to interpret this result as normal/abnormal. NRBC x10^3 (test code = 6159518450) See_Comment [Automated messa ge] The system which generated this result transmitted reference range: 10*3/?L. The reference range was not used to interpret this result as normal/abnormal. GRAN MAT (NEUT) % (test code = 770-8) 53.5 % IMM GRAN % (test code = 9138636260) 0.20 % LYMPH % (test code = 736-9) 36.7 % MONO % (test code = 5905-5) 8.2 % EOS % (test code = 713-8) 1.0 % BASO % (test code = 706-2) 0.4 % GRAN MAT x10^3(ANC) (test code = 5208694577) 5.65 10*3/uL 1.99-6.95 IMM GRAN x10^3 (test code = 1507152272) 0-0.06 LYMPH x10^3 (test code = 731-0) 3.87 10*3/uL 1.09-3.23 H MONO x10^3 (test code = 742-7) 0.86 10*3/uL 0.36-1.02 EOS x10^3 (test code = 711-2) 0.11 10*3/uL 0.06-0.53 BASO x10^3 (test code = 704-7) 0.04 10*3/uL 0.01-0.09 Lab Interpretation (test code = 82210-6) Abnormal [facility] Notes Date/Time Note Provider Source 2024-09-11 16:28:43 Discharged home ambulatory. Home instructions instructed. Jf Martinez RN [facility] 2024-09-11 14:41:01 Pp to the ED for c/o left leg pain that started Friday. Pt reports he thinks that he may have compressed calf muscle because when he sits he crosses his leg. Pt report no injury no trauma 5/10 pain. Pt reports he feels that his toes feels cold and just worried about DVT. Shanel Huntley RN [facility] 2024-09-11 14:37:00 [facility] Emergency Department Note Patient Name: Mary Renee Date of : 1985 39 year old male Treatment Room: [place] [address] Primary Care Physician: PATIENT DOES NOT HAVE A PCP Patient Escorted by: Family [5] Mode of Arrival: Personal means [1] EMS Treatment Prior to ED Arrival: Travel and Exposure Screening: Symptoms Does patient have any of these symptoms?: (not recorded) Exposure Screening Has patient had contact with someone with a communicable disease in the last month?: (not recorded) Diseases exposed to:: (not recorded) Is Patient ?: (not recorded) Exposure Date: (not recorded) Chief Complaint: Chief Complaint Patient presents with Pain Left leg History of Present Illness: History of Present Illness The patient presents from home for evaluation for left calf pain since Friday. Today is Friday. He denies any injury or trauma. No fevers or chills. No wounds to his leg. No swelling of the left leg when compared to the right leg. No recent trips or travel more than 2 or 3 hours. No chest pain or pressure. No shortness of breath. He has no history of high blood pressure, diabetes or high cholesterol. Here for evaluation. Past Medical History/Immunizations: History reviewed. No pertinent past medical history. Allergies: Allergies Allergen Reactions Codeine Extra pyramidal effects Penicillin Itching Past Social History: Substance & Sexual Activity No substance use or sexual activity history on file. Past Surgical History: History reviewed. No pertinent surgical history. Review of Systems: Review of Systems Constitutional: Negative for chills and fever. Respiratory: Negative for cough and shortness of breath. Cardiovascular: Negative for chest pain. Gastrointestinal: Negative for abdominal pain. Genitourinary: Negative for dysuria. Musculoskeletal: Positive for myalgias. Negative for arthralgias, neck pain and neck stiffness. Skin: Negative for wound. Neurological: Negative for dizziness. Psychiatric/Behavioral: Negative for agitation. Endocrine: Negative for goiter. Physical Exam: Physical Exam ED Triage Vitals [09/11/24 1444] Weight 86.2 kg (190 lb) Actual or estimated Actual Height 1.778 m (5' 10") BP (!) 131/91 Pulse 80 Resp 16 Temp 36.8 ?C (98.2 ?F) Temp source Oral SpO2 100 % Measured on Room air Physical Exam Vitals and nursing note reviewed. Constitutional: Appearance: Normal appearance. HENT: Head: Normocephalic and atraumatic. Cardiovascular: Rate and Rhythm: Normal rate. Pulses: Normal pulses. Pulmonary: Effort: Pulmonary effort is normal. No respiratory distress. Abdominal: General: There is no distension. Palpations: Abdomen is soft. Musculoskeletal: General: Normal range of motion. Cervical back: Neck supple. Comments: No erythema, warmth or tenderness to his left leg. +2 dorsalis pedis bilaterally. Skin: General: Skin is warm and dry. Neurological: General: No focal deficit present. Mental Status: He is alert and oriented to person, place, and time. Radiology: No orders to display Lab Results: Lab Results CBC WITH DIFF - Abnormal Result Value Ref Range WBC 10.27 4.20 - 10.70 10*3/?L RBC 4.91 4.26 - 5.52 10*6/?L HGB 15.6 12.2 - 16.4 g/dL HCT 44.9 38.4 - 49.3 % MCV 91.4 81.7 - 95.6 fL MCH 31.8 26.1 - 32.7 pg MCHC 34.7 31.2 - 35.0 g/dL RDW-SD 45.7 38.5 - 51.6 fL RDW-CV 13.5 12.1 - 15.4 % PLT 156 150 - 328 10*3/?L MPV 10.5 9.8 - 13.0 fL NRBC/100 WBC 0.0 0.0 - 10.0 /100 WBCs NRBC x10 3 <0.01 10*3/?L GRAN MAT (NEUT) % 52.6 % IMM GRAN % 0.20 % LYMPH % 38.2 % MONO % 7.8 % EOS % 0.9 % BASO % 0.3 % GRAN MAT x10 3 (ANC) 5.41 1.99 - 6.95 10*3/uL IMM GRAN x10 3 <0.03 0.00 - 0.06 10*3/uL LYMPH x10 3 3.92 (*) 1.09 - 3.23 10*3/uL MONO x10 3 0.80 0.36 - 1.02 10*3/uL EOS x10 3 0.09 0.06 - 0.53 10*3/uL BASO x10 3 0.03 0.01 - 0.09 10*3/uL CREATINE KINASE - Normal CK 80 33 - 194 U/L MAGNESIUM - Normal MAGNESIUM 1.8 1.7 - 2.4 mg/dL COMP. METABOLIC PANEL (30900) NA 137 135 - 145 mmol/L K 4.5 3.5 - 5.0 mmol/L CL 107 98 - 108 mmol/L CO2 TOTAL 23 23 - 31 mmol/L AGAP 7 2 - 16 BUN 14 7 - 23 mg/dL GLUCOSE 79 70 - 110 mg/dL CREATININE 0.92 0.60 - 1.25 mg/dL TOTAL BILI 0.6 0.1 - 1.1 mg/dL CALCIUM 9.3 8.6 - 10.6 mg/dL T PROTEIN 7.1 6.3 - 8.2 g/dL ALBUMIN 4.2 3.5 - 5.0 g/dL ALK PHOS 86 34 - 122 U/L ALTv 21 5 - 50 U/L AST(SGOT) 27 13 - 40 U/L eGFR 108.5 mL/min/1.73m2 EKG: If EKG completed, see Procedure Note. Orders and Treatments: Orders Placed This Encounter Procedures POCUS DVT US CBC WITH DIFF COMP. METABOLIC PANEL (75548) Creatine Kinase Magnesium Orders Placed This Encounter Medications NaCl 0.9% (NS) bolus infusion 1,000 mL First Provider Eval: ED Events Date/Time Event User Comments 09/11/24 1440 Medical Screening Begins SARINA HOLLIS DO -- 09/11/24 1440 First Provider Evaluation SARINA HOLLIS DO -- ED COURSE Diagnosis/Impression as of 09/11/24 1618 Pain of left lower extremity Results Procedures: Procedures MDM: Assessment & Plan Medical Decision Making The patient presents from home for evaluation for left calf pain since Friday. Today is Friday. He denies any injury or trauma. No fevers or chills. No wounds to his leg. No swelling of the left leg when compared to the right leg. No recent trips or travel more than 2 or 3 hours. No chest pain or pressure. No shortness of breath. He has no history of high blood pressure, diabetes or high cholesterol. Vital signs are stable in the ER. He has full range of motion of the left hip, knee and ankle. +2 dorsalis pedis bilaterally. His feet are warm to the touch and not blue or wagoner in color. He has no erythema, warmth or tenderness to his left leg. DVT ultrasound performed at bedside was negative. Laboratory studies looking for electrolyte abnormality as well as rhabdomyolysis were also negative. He was given IV fluids for possible dehydration. No concern for cellulitis or fracture based on his presentation. He remained stable here in the ER and is okay for discharge home with PCP follow-up in 1 week. Problems Addressed: Pain of left lower extremity: acute illness or injury Amount and/or Complexity of Data Reviewed Labs: ordered. Decision-making details documented in ED Course. Radiology: independent interpretation performed. Decision-making details documented in ED Course. Risk OTC drugs. Prescription drug management. Flowsheet Documentation: Scoring Tools: No data recorded Disposition/Condition: ED Disposition ED Disposition Discharge Condition Stable Comment -- Discharge Medications: Patient's Medications START taking these medications No medications on file CONTINUE taking these medications which have NOT CHANGED CHLORHEXIDINE GLUCONATE 0.12 % MUCOUS MEMBR MWSH 15 cc po swish and spit bid HYDROCODONE-ACETAMINOPHEN 5-325 MG ORAL TAB 1-2 tabs po q4-6h prn pain METRONIDAZOLE 250 MG ORAL TAB 1 tab po q8h START taking Modified Medications as Prescribed No medications on file STOP taking these medications No medications on file Follow-up: Electronically signed by: Sarina Hollis DO 09/11/24 [address] [facility]
[2024-12-28] MEDS ORDERED: NA CHLORIDE 0.9% 1,000 ML ONE (01:02)
[2024-12-28] MEDS ORDERED: ASPIRIN 81 MG CHEWABLE TABLET ONE (01:02)
[2024-12-28] MEDS ORDERED: KETOROLAC 30 MG/ML INJ ONE (01:02)
[2024-12-28 01:14] LABS: Absolute Lymphocytes (CBC) 3.5 K/uL (0.7-4.9); Hematocrit 42.6 % (39.6-49.0); Hemoglobin 14.6 g/dL (13.6-17.9); MCH 30.6 pg (27.0-35.0); MCHC 34.3 g/dL (32.0-36.0); MCV 89.2 fL (80-100); MPV 8.6 fL (7.6-11.3); Nucleated RBC Absolute Count 0.0 (0-0); Nucleated Red Blood Cells % 0.0 % (0-0); RBC Red Blood Cell Count 4.77 M/uL (4.33-5.43); White Blood Count 9.60 thou/uL (4.3-10.9)
[2024-12-28 01:27] LABS: Sqamous Epithelial None Seen /HPF (None Seen); Urine Culture Reflex Order NOT NEEDED; Urine Microscopic Reflex YN ORDER UMIC
[2024-12-28 01:33] LABS: ALT/SGPT 50 U/L (16-61); AST/SGOT 17 U/L (15-37); Albumin 3.7 g/dL (3.4-5.0); Albumin/Globulin Ratio 1.2 (1.1-1.8); Alkaline Phosphatase 95 U/L (45-117); Anion Gap 10.7 mEq/L (5.0-15.0); BUN Blood Urea Nitrogen 14 mg/dL (7-18); Globulin 3.2 g/dL (2.3-3.5); Glucose Level 105 mg/dL (74-106); HDL Cholesterol 43 mg/dL (40-60); LDL Cholesterol, Calculated 71 mg/dL (<130); LDL Cholesterol,Calc NonReport 71; Magnesium 2.0 mg/dL (1.6-2.4); NT PRO-BNP 39 pg/mL (<125); Potassium 3.7 mEq/L (3.5-5.1); Troponin High Sensitivity 3.8 pg/mL (<58.9)
[2024-12-28 01:34] LABS: Bilirubin Indirect, Calculated 0.0 mg/dL (0.2-0.8)
[2024-12-28 02:09] LABS: D-Dimer 0.35 FEUug/mL (0-0.500); PT Prothrombin Time 10.6 SECONDS (10-13.0); Protime INR 0.94
--- NOTE | 2024-12-28 03:28 | ER ---
Nurse's Notes [facility] Name: Baudilio Rich Jr Age: 39 yrs Sex: Male : 1985 Arrival Date: 12/28/2024 Time: 00:00 Bed 18 Private MD: Diagnosis: Unspecified symptoms and signs involving the musculoskeletal system;Cramp and spasm;Essential (primary) hypertension Presentation: 12/28 00:06 Chief complaint: Patient states: trying to sleep and both of my legs hurt really bad. vc1 Coronavirus screen: Client denies travel out of the [place] in the last 14 days. At this time, the client does not indicate any symptoms associated with coronavirus-19. Ebola Screen: Patient negative for fever greater than or equal to 101.5 degrees Fahrenheit, and additional compatible Ebola Virus Disease symptoms Patient denies exposure to infectious person. Patient denies travel to an Ebola-affected area in the 21 days before illness onset. No symptoms or risks identified at this time. Initial Sepsis Screen: Does the patient meet any 2 criteria? No. Patient's initial sepsis screen is negative. Does the patient have a suspected source of infection? No. Patient's initial sepsis screen is negative. Risk Assessment: Do you want to hurt yourself or someone else? Patient reports no desire to harm self or others. Note for the last few months. Onset of symptoms is unknown. 00:06 Method Of Arrival: Ambulatory vc1 00:06 Acuity: IRMA 3 vc1 Triage Assessment: 00:10 General: Appears in no apparent distress. uncomfortable, slender, Behavior is calm, vc1 cooperative, appropriate for age. Pain: Complains of pain in right leg and left leg Pain does not radiate. Pain currently is 6 out of 10 on a pain scale. Quality of pain is described as throbbing, Is intermittent. EENT: No deficits noted. No signs and/or symptoms were reported regarding the EENT system. Neuro: Level of Consciousness is awake, alert, obeys commands, Oriented to person, place, time, situation, Appropriate for age. Cardiovascular: Denies chest pain, Capillary refill < 3 seconds Patient's skin is warm and dry. Respiratory: Airway is patent Respiratory effort is even, unlabored, Respiratory pattern is regular, symmetrical, Breath sounds are clear bilaterally. GI: No deficits noted. No signs and/or symptoms were reported involving the gastrointestinal system. : No deficits noted. No signs and/or symptoms were reported regarding the genitourinary system. Derm: Skin is intact, is healthy with good turgor, Skin is dry, Skin is normal, Skin temperature is warm. Musculoskeletal: Circulation, motion, and sensation intact. Range of motion: intact in all extremities. Historical: - Allergies: 00:09 Amoxicillin; vc1 00:09 Codeine; vc1 00:09 PENICILLINS; vc1 - Home Meds: 00:09 None [Active]; vc1 - PMHx: 00:09 Kidney stone; vc1 - PSHx: 00:09 oral surgery (s); vc1 - Immunization history:: Client reports receiving the 2nd dose of the Covid vaccine. - Infectious Disease History:: Denies. - Social history:: Smoking status: Patient reports use of chewing tobacco. Patient/guardian denies using tobacco, Stopped _ months ago 2. Screenin:08 [facility] ED Fall Risk Assessment (Adult) History of falling in the last 3 months, vc1 including since admission No falls in past 3 months (0 pts) Confusion or Disorientation No (0 pts) Intoxicated or Sedated No (0 pts) Impaired Gait No (0 pts) Mobility Assist Device Used No (0 pt) Altered Elimination No (0 pt) Score/Fall Risk Level 0 - 2 = Low Risk Oriented to surroundings, Maintained a safe environment, Educated pt \T\ family on fall prevention, incl call for assistance when getting out of bed, Assessed \T\ reinforced patient's understanding of fall precautions, Hourly rounding (assess needs \T\ fall precautionary measures) done. Abuse screen: Denies threats or abuse. Nutritional screening: No deficits noted. Tuberculosis screening: No symptoms or risk factors identified. Assessment: 00:15 General: Appears uncomfortable, Behavior is calm, cooperative, appropriate for age, nh2 Denies fever, feeling ill, fatigue, chills. Pain: Complains of pain in left groin Pain radiates to both legs Pain currently is 7 out of 10 on a pain scale. Quality of pain is described as aching, Pain began months ago Is intermittent. Neuro: Level of Consciousness is awake, alert, obeys commands, Oriented to person, place, time, situation, Appropriate for age Denies weakness headache. Cardiovascular: Denies chest pain, Patient's skin is warm and dry. Respiratory: Airway is patent Trachea midline Denies cough, shortness of breath. GI: Abdomen is round non-distended, Patient currently denies diarrhea, nausea, vomiting. : No signs and/or symptoms were reported regarding the genitourinary system. EENT: No signs and/or symptoms were reported regarding the EENT system. Derm: Skin is intact, Skin is pink, warm \T\ dry. Musculoskeletal: Range of motion: intact in all extremities. 01:15 Reassessment: Patient and/or family updated on plan of care and expected duration. Pain nh2 level reassessed. Patient is alert, oriented x 3, equal unlabored respirations, skin warm/dry/pink. Patient states feeling better. 01:50 Reassessment: pt transferred to CT via stretcher. nh2 02:07 Reassessment: pt back from CT. Reconnected to monitor, warm blankets applied, and call nh2 light in reach. 03:07 Reassessment: Patient and/or family updated on plan of care and expected duration. Pain nh2 level reassessed. Patient is alert, oriented x 3, equal unlabored respirations, skin warm/dry/pink. Patient denies pain at this time. Vital Signs: 00:06 Weight 88.45 kg; Height 5 ft. 10 in. ; Pain 6/10; vc1 00:30 BP 130 / 93; Pulse 68; Resp 18; Temp 97.9(O); Pulse Ox 99% ; nh2 01:30 BP 136 / 90; Pulse 76; Resp 17; Pulse Ox 98% on R/A; nh2 02:08 BP 130 / 84; Pulse 67; Resp 18; Temp 98; Pulse Ox 98% on R/A; nh2 03:08 BP 124 / 79; Pulse 71; Resp 18; Pulse Ox 99% on R/A; nh2 00:06 Body Mass Index 27.98 (88.45 kg, 177.8 cm) vc1 00:06 Pain Scale: Adult vc1 ED Course: 00:03 Patient arrived in ED. mr 00:08 Triage completed. vc1 00:10 Arm band placed on left wrist. vc1 00:10 Patient has correct armband on for positive identification. Bed in low position. vc1 Provided Education on: Plan of care. 00:19 Juan Luis Griffith Jr, RN is Primary Nurse. nh2 00:29 Eze Grider MD is Attending Physician. landon 01:09 Initial lab(s) drawn, by nc, sent to lab. Urine collected: clean catch specimen, clear. bm8 Inserted saline lock: 18 gauge in right forearm, using aseptic technique. Blood collected. Flushed with 10 mL NS Accessed. Patient maintains SpO2 saturation greater than 95% on room air. 01:25 XRAY Chest (1 view) In Process Unspecified. EDMS 01:42 EKG done, by ED staff, reviewed by Eze Grider MD. nh2 01:58 CT Aorta for Dissection In Process Unspecified. EDMS 03:27 Lasha Leiva MD is Referral Physician. landon 03:39 IV discontinued, intact, bleeding controlled, No redness/swelling at site. Pressure nh2 dressing applied. 03:39 No provider procedures requiring assistance completed. nh2 Administered Medications: 01:08 Drug: Ketorolac IVP 30 mg IVP once Route: IVP; Site: right forearm; bm8 01:39 Follow up: Response: No adverse reaction nh2 01:08 Not Given (Patient Refused): ondansetron 4 mg IVP once; over 2 minutes bm8 01:08 Drug: Aspirin PO Chewable Tablet 81 mg PO once Route: PO; bm8 01:39 Follow up: Response: No adverse reaction nh2 01:09 Drug: NS 0.9% IV 1000 ml IV at 1000 ml once; to be given as a bolus over 60 minutes bm8 Route: IV; Rate: 1000 ml; Site: right forearm; 03:23 Follow up: IV Status: Completed infusion; IV Intake: 1000ml nh2 Medication: 00:10 VIS not applicable for this client. vc1 Intake: 03:23 IV: 1000ml; Total: 1000ml. nh2 Outcome: 03:27 Discharge ordered by . landon 03:39 Discharged to home ambulatory, nh2 03:39 Condition: stable 03:39 Discharge instructions given to patient, Instructed on discharge instructions, follow up and referral plans. no drinking with medication, medication usage, Demonstrated understanding of instructions, follow-up care, medications, Prescriptions given X 4, 03:40 Patient left the ED. nh2 Signatures: Dispatcher [employer] EDPA Eze Grider MD MD cha Rivera, Mary, Reg Reg mr Zari Booth RN RN vc1 Santos Perez RN RN bm8 Nacho Mueller, Juan Luis, RN RN nh2
--- NOTE | 2024-12-28 03:28 | EDPHYS ---
Physician Documentation [facility] Name: Baudilio Rich Jr Age: 39 yrs Sex: Male : 1985 Arrival Date: 12/28/2024 Time: 00:00 Bed 18 Private MD: HAVEN Physician Eze Grider HPI: 12/28 00:48 This 39 yrs old Male presents to ER via Ambulatory with complaints of Groin landon Pain, Leg Pain. 00:48 The patient presents with pain. The complaints affect the right leg and left leg. landon Historical: - Allergies: 00:09 Amoxicillin; vc1 00:09 Codeine; vc1 00:09 PENICILLINS; vc1 - Home Meds: 00:09 None [Active]; vc1 - PMHx: 00:09 Kidney stone; vc1 - PSHx: 00:09 oral surgery (s); vc1 - Immunization history:: Client reports receiving the 2nd dose of the Covid vaccine. - Infectious Disease History:: Denies. - Social history:: Smoking status: Patient reports use of chewing tobacco. Patient/guardian denies using tobacco, Stopped _ months ago 2. ROS: 00:50 Constitutional: Negative for fever, chills, and weight loss, Eyes: Negative for injury, landon pain, redness, and discharge, ENT: Negative for injury, pain, and discharge, Neck: Negative for injury, pain, and swelling, Cardiovascular: Negative for chest pain, palpitations, and edema, Respiratory: Negative for shortness of breath, cough, wheezing, and pleuritic chest pain, Abdomen/GI: Negative for abdominal pain, nausea, vomiting, diarrhea, and constipation, Back: Negative for injury and pain, : Negative for injury, bleeding, discharge, and swelling, Skin: Negative for injury, rash, and discoloration, Neuro: Negative for headache, weakness, numbness, tingling, and seizure, Psych: Negative for depression, anxiety, suicide ideation, homicidal ideation, and hallucinations, Allergy/Immunology: Negative for hives, rash, and allergies, Endocrine: Negative for neck swelling, polydipsia, polyuria, polyphagia, and marked weight changes, Hematologic/Lymphatic: Negative for swollen nodes, abnormal bleeding, and unusual bruising, 00:50 MS/extremity: Positive for decreased range of motion, pain, tenderness, Exam: 00:50 Constitutional: This is a well developed, well nourished patient who is awake, alert, landon and in no acute distress. Head/Face: Normocephalic, atraumatic. Eyes: Pupils equal round and reactive to light, extra-ocular motions intact. Lids and lashes normal. Conjunctiva and sclera are non-icteric and not injected. Cornea within normal limits. Periorbital areas with no swelling, redness, or edema. ENT: Nares patent. No nasal discharge, no septal abnormalities noted. Tympanic membranes are normal and external auditory canals are clear. Oropharynx with no redness, swelling, or masses, exudates, or evidence of obstruction, uvula midline. Mucous membranes moist. Neck: Trachea midline, no thyromegaly or masses palpated, and no cervical lymphadenopathy. Supple, full range of motion without nuchal rigidity, or vertebral point tenderness. No Meningismus. Chest/axilla: Normal chest wall appearance and motion. Nontender with no deformity. No lesions are appreciated. Cardiovascular: Regular rate and rhythm with a normal S1 and S2. No gallops, murmurs, or rubs. Normal PMI, no JVD. No pulse deficits. Respiratory: Lungs have equal breath sounds bilaterally, clear to auscultation and percussion. No rales, rhonchi or wheezes noted. No increased work of breathing, no retractions or nasal flaring. Abdomen/GI: Soft, non-tender, with normal bowel sounds. No distension or tympany. No guarding or rebound. No evidence of tenderness throughout. Back: No spinal tenderness. No costovertebral tenderness. Full range of motion. Male : Normal genitalia with no discharge or lesions. Skin: Warm, dry with normal turgor. Normal color with no rashes, no lesions, and no evidence of cellulitis. MS/ Extremity: Pulses equal, no cyanosis. Neurovascular intact. Full, normal range of motion., bilateral aka Neuro: Awake and alert, GCS 15, oriented to person, place, time, and situation. Cranial nerves II-XII grossly intact. Motor strength 5/5 in all extremities. Sensory grossly intact. Cerebellar exam normal. Normal gait. Psych: Awake, alert, with orientation to person, place and time. Behavior, mood, and affect are within normal limits. 00:50 Musculoskeletal/extremity: ROM: full active range of motion, full passive range of motion, Pulses: noted to be 4+ in the bilateral radial, brachial, femoral, popliteal, posterior tibial and and dorsalis pedis arteries., Sensation intact. Compartment Syndrome exam of affected extremity: is normal. no pain, no numbness, no tingling, no sensation deficit, no palor, no weak pulses, Weight bearing: able to fully bear weight, DVT Exam: no pain, no swelling, no tenderness, negative Homans' sign noted on exam, no appreciated bluish discoloration, no erythema, no increased warmth, 00:50 Neuro: Orientation: is normal, appropriate for stated age, no acute changes, Mentation: is normal, appropriate for stated age, no acute changes, Memory: is normal, appropriate for stated age, no acute changes, Cranial nerves: grossly normal, is grossly normal based on the patient's age, no acute changes, Cerebellar function: is grossly normal, Motor: is normal, Sensation: is normal, Gait: is steady, appropriate for age, 01:39 ECG was reviewed by the Attending Physician. [facility] Vital Signs: 00:06 Weight 88.45 kg; Height 5 ft. 10 in. ; Pain 6/10; vc1 00:30 BP 130 / 93; Pulse 68; Resp 18; Temp 97.9(O); Pulse Ox 99% ; nh2 01:30 BP 136 / 90; Pulse 76; Resp 17; Pulse Ox 98% on R/A; nh2 02:08 BP 130 / 84; Pulse 67; Resp 18; Temp 98; Pulse Ox 98% on R/A; nh2 03:08 BP 124 / 79; Pulse 71; Resp 18; Pulse Ox 99% on R/A; nh2 00:06 Body Mass Index 27.98 (88.45 kg, 177.8 cm) vc1 00:06 Pain Scale: Adult vc1 MDM: 00:29 Medical Screening Exam initiated [facility] 00:53 Differential diagnosis: tendonitis. Data reviewed: vital signs, nurses notes, lab test [facility] result(s), EKG, radiologic studies, CT scan, plain films. Consideration of Admission/Observation Escalation of care including admission/observation considered. I considered the following discharge prescriptions or medication management in the emergency department Medications were administered in the Emergency Department. See MAR. Independent interpretation of the following test(s) in the Emergency Department EKG: See my EKG interpretation above. Historians other than the Patient: Spouse/Significant Other: well informed. Care significantly affected by the following chronic conditions: tobacco abuse, kidney stones. 12/28 00:45 Order name: Basic Metabolic Panel; Complete Time: :38 [facility] 12/28 00:45 Order name: CBC with Diff; Complete Time: :38 12/28 00:45 Order name: LFT's; Complete Time: :38 12/28 00:45 Order name: Magnesium; Complete Time: :12/28 00:45 Order name: NT PRO-BNP; Complete Time: :38 12/28 00:45 Order name: PT-INR; Complete Time: 03:12/28 00:45 Order name: Troponin HS; Complete Time: : [facility] 12/28 00:45 Order name: D-Dimer; Complete Time: 03:01 [facility] 12/28 00:45 Order name: UA Rfx Josias Cult if indicated; Complete Time: : [facility] 12/28 00:46 Order name: Lipid Profile; Complete Time: :38 [facility] 12/28 00:45 Order name: XRAY Chest (1 view) 12/28 00:49 Order name: CT Aorta for Dissection 12/28 00:45 Order name: Cardiac monitoring; Complete Time: :41 [facility] 12/28 00:45 Order name: EKG - Nurse/Tech; Complete Time: :41 [facility] 12/28 00:45 Order name: IV Saline Lock; Complete Time: : [facility] 12/28 00:45 Order name: Labs collected and sent; Complete Time: : [facility] 12/28 00:45 Order name: O2 Per Protocol; Complete Time: : [facility] 12/28 00:45 Order name: O2 Sat Monitoring; Complete Time: : [facility] EC:39 Rate is 67 beats/min. Rhythm is regular. QRS [place] is Normal. CO interval is normal. QRS landon interval is normal. QT interval is normal. No Q waves. T waves are Normal. No ST changes noted. Clinical impression: Normal ECG and No evidence of ischemia. Interpreted by me. Reviewed by me. Administered Medications: 01:08 Drug: Ketorolac IVP 30 mg IVP once Route: IVP; Site: right forearm; bm8 01:39 Follow up: Response: No adverse reaction nh2 01:08 Not Given (Patient Refused): ondansetron 4 mg IVP once; over 2 minutes bm8 01:08 Drug: Aspirin PO Chewable Tablet 81 mg PO once Route: PO; bm8 01:39 Follow up: Response: No adverse reaction nh2 01:09 Drug: NS 0.9% IV 1000 ml IV at 1000 ml once; to be given as a bolus over 60 minutes bm8 Route: IV; Rate: 1000 ml; Site: right forearm; 03:23 Follow up: IV Status: Completed infusion; IV Intake: 1000ml nh2 Disposition Summary: 12/28/24 03:27 Discharge Ordered Notes: Location: Home landon Problem: new landon Symptoms: have improved landon Condition: Stable landon Diagnosis - Unspecified symptoms and signs involving the musculoskeletal system landon - Cramp and spasm landon - Essential (primary) hypertension landon Followup: landon - With: Private Physician - When: 2 - 3 days - Reason: Recheck today's complaints, Continuance of care, Re-evaluation by your physician Followup: landon - With: Lasha Leiva MD - When: 2 - 3 days - Reason: Recheck today's complaints, Continuance of care, Re-evaluation by your physician Discharge Instructions: - Discharge Summary Sheet landon - Hypertension, Adult landon - Musculoskeletal Pain landon - Hypertension, Adult, [id number] landon - Tobacco Use Disorder landon - Aspirin and Your Heart landon - Smoking Tobacco Information, Adult landon - Smoking and Musculoskeletal Health [facility] Forms: - Medication Reconciliation Form landon - Antibiotic Education landon - Prescription Opioid Use landon - Patient Portal Instructions [facility] - Leadership Thank You Letter [facility] Prescriptions: - diclofenac sodium 25 mg Oral tablet, delayed release (enteric coated) - take 1 tablet ORAL route 3 times per day; 30 tablet; Refills: 0, Product landon Selection Permitted - Xanax 0.5 mg Oral tablet - take 1 tablet ORAL route At bedtime As needed; 10 tablet; Refills: 0, Product landon Selection Permitted - Lisinopril 10 mg Oral Tablet - take 1 tablet ORAL route once daily; 20 tablet; Refills: 0, Product Selection landon Permitted - methocarbamol 750 mg Oral tablet - take 1 tablet ORAL route every 4-6 hours prn cramps; 28 tablet; Refills: 0, landon Product Selection Permitted Signatures: Dispatcher [employer] Eze Vazquez MD MD cha Calcote, Vanessa, RN RN vc1 Santos Perez, RN RN bm8 Nacho Jr, Juan Luis RN nh2 Corrections: (The following items were deleted from the chart) 00:46 00:46 BASIC METABOLIC PANEL+C.LAB.BRZ ordered. EDMS EDMS 00:46 00:46 CBC+H.LAB.BRZ ordered. EDMS EDMS 00:46 00:46 HEPATIC FUNCTION+C.LAB.BRZ ordered. EDMS EDMS 00:46 00:46 MAGNESIUM+C.LAB.BRZ ordered. EDMS EDMS 00:46 00:46 PROBNP+C.LAB.BRZ ordered. EDMS EDMS 00:46 00:46 PROTIME (+INR)+COAG.LAB.BRZ ordered. EDMS EDMS 00:46 00:46 Troponin High Sensitivity+C.LAB.BRZ ordered. EDMS EDMS 00:46 00:46 D-DIMER+COAG.LAB.BRZ ordered. EDMS EDMS 00:46 00:46 UA Rfx Josias Cult if indicated+U.LAB.BRZ ordered. EDMS EDMS 00:46 00:46 Chest Single View+RAD.RAD.BRZ ordered. EDMS EDMS 00:46 00:46 LIPID PROFILE+C.LAB.BRZ ordered. EDMS EDMS
--- NOTE | 2024-12-28 03:57 | RAD REPORT ---
EXAM DESCRIPTION: Angio Aorta For Dissection CLINICAL HISTORY: DISSECTION COMPARISON: 06/09/2024 TECHNIQUE: CTA of the chest, abdomen, and pelvis obtained following IV administration of iodinated co ntrast. 3-D/MIP reformatted images available. This exam was performed according to our departmental dose-optimization program, which includes automated exposure control, adjustment of the mA and/or kV according to patient size and/or use of iterative reconstruction technique. FINDINGS: CTA: Pulmonary arteries: Contrast bolus is adequate. No filling defects identified in the pulmonary arteri es to suggest pulmonary embolus. Great Vessels: Great vessels have normal anatomic configuration. Thoracic Aorta: Normal caliber thoracic aorta without evidence of dissection. Abdominal Aorta and Iliac Arteries: Normal caliber abdominal aorta without evidence of dissection. Ao rtoiliac atherosclerosis. There are straight line flow from the aorta into the iliac arteries. Visceral Arteries: The visceral arteries are widely patent. Renal Arteries: The renal arteries are widely patent. Chest: Thyroid: No abnormalities of the visualized thyroid. Heart: No cardiomegaly, significant pericardial effusion, or coronary artery atherosclerosis Lymph Nodes: No enlarged mediastinal lymph nodes identified. Esophagus: No abnormalities of the esophagus identified. Other: No additional findings. Lungs: No airspace opacities identified. Pleura: No pleural effusion or pneumothorax. Trachea/Airways: No abnormalities of the visualized trachea or airways. Abdomen: Liver: No intrahepatic biliary dilatation. Decreased density of the liver. Gallbladder: No calcified gallstones. Spleen, Pancreas, and Adrenal Glands: The spleen, pancreas, and adrenal glands are unremarkable. Kidneys: Mild right hydroureter and hydronephrosis. No obstructing ureteral calculi. No left-sided hydronephrosis. Bilateral nonobstructing nephrolithiasis. Vasculature: IVC have normal caliber and position. Stomach: The stomach and duodenum have normal course. Other: No free intraperitoneal air. No free fluid or lymphadenopathy. Pelvis: Bladder: Urinary bladder is unremarkable. Bowel: No dilated loops of large or small bowel. Large amount stool throughout the colon. Mild wall thickening of the small bowel with shotty superior mesenteric and periaortic lymph nodes. Appendix: Normal appendix. Pelvis: Enlarged prostate. Bones: Multilevel endplate spondylosis and facet arthropathy. IMPRESSION: 1. No evidence of aortic dissection or aneurysm. No pulmonary embolus. 2. Mild wall thickening of the small bowel with shotty superior mesenteric and periaortic lymph nod es. These findings could be seen with nonspecific enteritis. 3. Mild right hydroureter and hydronephrosis. No obstructing ureteral calculi. This may be related to recently passed right ureteral calculus. 4. Bilateral nonobstructing nephrolithiasis. 5. Enlarged prostate. 6. Hepatic steatosis. Electronically signed by: Amari Vega DO 12/28/2024 03:51 AM CDT RP [id number] Due to temporary technical issues with the PACS/Goomeo reporting system, reports are being tanmay d by the in-house radiologist without review as a courtesy to ensure prompt reporting the interpreting radiologist is fully responsible for the content of the report. Transcribed Date/Time: 12/28/2024 3:56 AM
--- NOTE | 2024-12-28 06:06 | RAD REPORT ---
EXAM: XR Chest, 1 View CLINICAL HISTORY: The patient is 39 years old and is Male; CHEST PAIN TECHNIQUE: Frontal view of the chest. COMPARISON: No relevant prior studies available. FINDINGS: LUNGS: Unremarkable. No consolidation. PLEURAL SPACE: Unremarkable. No pneumothorax. HEART: Unremarkable. No cardiomegaly. MEDIASTINUM: Unremarkable. Normal mediastinal contour. BONES/JOINTS: Unremarkable. No acute fracture. UPPER ABDOMEN: Unremarkable as visualized. IMPRESSION: No acute cardiopulmonary process. Electronically signed by: Pat Knight MD 12/28/2024 02:32 AM CDT RP Due to temporary technical issues with the PACS/DevHD reporting system, reports are being tanmay d by the in-house radiologist without review as a courtesy to ensure prompt reporting the interpreting radiologist is fully responsible for the content of the report. Transcribed Date/Time: 12/28/2024 6:06 AM
[2024-12-28 12:59] VITALS: TEMP 98
[2024-12-28 13:00] VITALS: BP 124/79; O2SAT 99
== END 2024-12-28 03:40 | disposition home or self-care (01) ==
LOC: ER
DX: R29.91 Unspecified symptoms and signs involving the musculoskeletal system (principal); R25.2 Cramp and spasm
CPT/HCPCS: 36415; 71045; 71275; 74175; 80048; 80061; 80076; 81001; 83735; 83880; 84484; 85025; 85379; 85610; 93005; 96361; 96374; 99285; J1885; J7030; Q9967